=== PATIENT | female | born 1970 | race Hispanic/Latino ===

== ENCOUNTER → 2020-10-06 14:24 | Outpatient (CLI) | payer OTHER, SELFPAY ==
[2020-10-06 13:34] VITALS: BMI 37.0
[2020-10-06 14:27] LABS: Mucous, Urine 0 SEEN /hpf (<or=2+); Red Blood Cells-Urine 0 SEEN /hpf (0-5)
[2020-10-06 15:21] LABS: Absolute Lymphocyte Count 3.07 X10^3/uL (0.83-4.51); Absolute Neutrophil Count 4.2 X10^3/uL (2.0-7.7); Basophil# 0.02 X10^3/uL; Basophil% 0.2 % (0-1); Color, Urine Yellow (Yellow); Eosinophil# 0.13 X10^3/uL; Eosinophils% 1.6 % (0-5); Glucose, Dipstick Normal (Normal); Hematocrit 40.2 % (37-47); Hemoglobin 13.8 g/dL (12.0-15.0); Ketone-Dipstick 50 mg/dl (Negative); Leukocyte Esterase-Dipstick 25 /ul (Negative); Lymphocyte # 3.07 X10^3/ul (4.0); Lymphocyte % 38.1 % (19-41); Mean Corp Hgb Conc 34.3 g/dL (32-36); Mean Corpuscular Hgb 30.4 pg (27.0-32.0); Mean Corpuscular Volume 88.5 fL (81-99); Mean Platelet Vol. 10.4 fl (6.2-12.0); Monocyte# 0.59 X10^3/uL; Monocyte% 7.3 % (0-10); NRBC Flagged by Analyzer 0 % (0-5); Neutrophil # 4.22 X10^3/uL (2.7-7.7); Neutrophil % 52.6 % (47-70); Nitrite-Dipstick Negative (Negative); Occult Blood-Urine 10 /ul (Negative); Platelet Count 245 K/mm3 (150-450); Protein-Dipstick Negative (Negative); RBC Distribution Width CV 12.8 % (11.6-14.6); RBC Distribution Width SD 40.3 fl (35.1-43.9); Red Blood Count 4.54 M/mm3 (4.2-5.4); Urine Bilirubin Dipstick Negative (Negative); Urine Clarity Clear (Clear); Urine Urobilinogen Normal (Normal); White Blood Count 8.1 K/mm3 (4.4-11.0)
[2020-10-06 15:39] LABS: Squamous Epithelial Cells - UA 5-10 SEEN /hpf (5-10)
[2020-10-06 15:40] LABS: Bacteria RARE /hpf (None Seen); White Blood Cells 0-5 SEEN /hpf (0-5)
[2020-10-06 16:03] LABS: ALB/GLOB Ratio 1.1 RATIO (0.9-2.4); AST(SGOT) 20 U/L (15-37); Alanine Aminotransfer ALT/SGPT 42 U/L (13-56); Albumin, Serum 3.9 g/dL (3.2-5.0); Alkaline Phosphatase 95 U/L (45-117); Anion Gap 9 (5-15); BUN 12 mg/dL (7-18); BUN/Creat Ratio 17.1 RATIO (10-20); Calcium,Total 9.3 mg/dL (8.5-10.1); Chloride 105 mmol/L (98-107); EST Glomerular Filtration Rate 93 mL/min (>60); Est Glom Filt Rate - Afr Amer 113 mL/min (>60); Globulin 3.5 g/dL (2.2-4.2); Glucose 126 mg/dL (74-106); Potassium 3.7 mmol/L (3.5-5.1); Protein, Total 7.4 g/dL (6.4-8.2); Sodium Level 141 mmol/L (136-145)
[2020-10-07 19:44] LABS: Hemoglobin A1c 7.1 % (3.8-5.6)
== END ==
PROVIDERS: PCP Internal Medicine; Visit Provider Internal Medicine
DX: R10.9 Unspecified abdominal pain (principal); R73.9 Hyperglycemia, unspecified
CPT/HCPCS: 36415; 80053; 81001; 83036; 85025

== ENCOUNTER → 2020-10-16 07:48 | Outpatient (CLI) | payer OTHER, SELFPAY ==
[2020-10-06 13:34] VITALS: BMI 37.0
--- NOTE | 2020-10-16 07:50 | US_ITS ---
STUDY: ULTRASOUND TRANSVAGINAL CLINICAL: Female, 50 years old. RLQ PAIN TECHNIQUE: Transvaginal COMPARISON: None. FINDINGS: Normal uterine size measuring 7.4 x 5.7 x 3.7 cm in maximal craniocaudal dimension. There are fibroids noted the largest measuring 2.5 x 1.6 x 1.8 cm Normal endometrial thickness measuring 2.4 mm. There are no endometrial masses, and there is no fluid in the endometrial cavity. Tiny nabothian cyst in the lower uterine segment Normal right ovary, measuring 3.3 x 1.8 x 2.3 cm. There is a small cystic structure in the adnexa measuring 1.1 x 1 x 0.7 cm possibly representing a paraovarian cyst Normal left ovary, measuring 1.8 x 1.5 x 1.1 cm. There are multiple follicles without a dominant cyst. There is no free fluid in the pelvis. US/Transvaginal Non- IMPRESSION: Intrauterine fibroids the largest measuring 1.1 x 1 x 0.7 cm Small right adnexal cyst measuring 1.1 x 1 x 0.7 cm possibly paraovarian in etiology. Electronically Signed: Kyler Allen MD at 16:51 EST , Service support ,
== END ==
PROVIDERS: PCP Internal Medicine; Referring Provider Internal Medicine; Visit Provider Internal Medicine
DX: R10.31 Right lower quadrant pain (principal)
CPT/HCPCS: 76830

== ENCOUNTER 2020-12-18 09:32 | Day surgery (SDC) | payer OTHER, BC, SELFPAY ==
[2020-10-06 13:34] VITALS: BMI 37.0
--- NOTE | 2020-12-16 15:57 | EKG12_ITS ---
Test Reason : PRE-OP Blood Pressure : / mmHG Vent. Rate : 093 BPM Atrial Rate : 093 BPM P-R Int : 146 ms QRS Dur : 082 ms QT Int : 362 ms P-R-T Axes : 040 -30 020 degrees QTc Int : 450 ms Normal sinus rhythm Left axis deviation Left ventricular hypertrophy Poor R wave progression Abnormal ECG Confirmed by MARIANN HENNESSY, BEKAH ([id number]), purchase request editor IKE CASTILLO ([id number]) on 12/18/2020 11:12:35 AM Referred By: Naman Kirkland Confirmed By:BEKAH WAITE MD
[2020-12-16 17:07] LABS: Hematocrit 40.5 % (37-47); Hemoglobin 13.5 g/dL (12.0-15.0); Mean Corp Hgb Conc 33.3 g/dL (32-36); Mean Corpuscular Hgb 29.7 pg (27.0-32.0); Mean Platelet Vol. 10.3 fl (6.2-12.0); Platelet Count 249 K/mm3 (150-450); RBC Distribution Width CV 12.6 % (11.6-14.6); RBC Distribution Width SD 41.3 fl (35.1-43.9); Red Blood Count 4.55 M/mm3 (4.2-5.4); White Blood Count 9.7 K/mm3 (4.4-11.0)
[2020-12-18] VITALS (7 sets, daily range): BP systolic 110–148; BP diastolic 60–90; PULSE 72–89; RESP 16–18; TEMP 36–36.6; O2SAT 88–100; BMI 36.3
[2020-12-18] MEDS: Lactated Ringers 1,000 ML 100 ML IV (10:19)
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
--- NOTE | 2020-12-18 11:00 | CYST_PTH ---
PATIENT: SAIMA ESCAMILLA LOC: [facility] U#:[id number] AGE/SX: 50/F ROOM: RE12/18/[address]: Dr. Naman Kirkland MD : 1970 BED: DIS: 12/18/2020 SPEC #: [id number] RECD: 12/18/20 13:25 STATUS: MOHINI REShawn #: [id number] KRUNAL: 12/18/20 11:[address]: Naman Kirkland DEPT: SURGICAL PATHOLOGY RECD BY: Judy Paul ENTERED: 12/19/20 07:10 SP TYPE: Cyst OTHR DR: Dr. Mala Olivares MD Tissues: A - CYST B - CYST Procedures: Surgery Specimen Level III HEADER OPERATION: Diagnostic laparoscopy, ovarian cystectomy, left paratubal cyst PRE-OP DIAGNOSIS: Right lower quadrant pain TISSUE SUBMITTED: A - Right ovarian cyst, B - Left paratubal cyst MICROSCOPIC DIAGNOSIS A. Right ovarian cyst, cystectomy: Consistent with fibroma. B. Left paratubal cyst: Consistent with paratubal cyst. CECIL:paula 12/22/2020 COMMENT Case has been reviewed in consultation with Dr. Cox who concurs with the above diagnosis. IDC:AM MICROSCOPIC DESCRIPTION Slides are reviewed. GROSS DESCRIPTION A - Received in fixative is one container labeled with the patient's name and designated right ovarian cyst. The specimen consists of an indurated fragment of white-sam soft tissue measuring 1 x 0.7 x 0.5 cm. The specimen is sectioned and totally submitted in one cassette. B - Received in fixative is one container labeled with the patient's name and designated left paratubal cyst. The specimen consists of a piece of sam soft tissue measuring 0.5 x 0.5 x 0.2 cm. The specimen is totally submitted in one cassette. / AM:paula 12/19/20 TC:5 CPT: 71349 x2
--- NOTE | 2020-12-18 11:56 | OP.PCM_ITS ---
Report of Operation Date of Procedure: 12/18/20 Pre-Operative Diagnosis: Right lower quadrant pain Post-Operative Diagnosis: Right lower quadrant pain Surgery/Procedure Performed:: Diagnostic laparoscopy, right ovarian cystectomy, left paratubal cystectomy Description of Surgical Findings:: Surgeon: Naman Kirkland MD Anesthesia: General EBL: 5 cc Urine output: 125 cc IV fluids: 1000 cc Complications: None Specimen: Right ovarian cyst, left paratubal cyst Findings: Right ovary with half centimeter solid white ovarian cyst. Left fallopian tube with left paratubal cyst. Otherwise normal uterus, tubes, and ovaries. Appendix visualized no pathology noted Consent: Patient arrived with right lower quadrant pain for 3 years elected for diagnostic laparoscopy right ovarian cystectomy left paratubal cystectomy. Patient understands the risk of the procedure include but are not limited to visceral or vascular injury, prolonged hospitalization, blood loss and need for transfusion, reoperation. Patient said understanding wish to proceed. All questions are answered consent was signed Procedure: Patient for back to the OR where general anesthesia found to be adequate. No antibiotic indicated. A weighted speculum was placed in the posterior aspect of the vagina cervical dilators used to dilate cervix. Your manipulator was placed. Varies needle was inserted at the umbilicus water safety test was passed. Midline supraumbilical 5 mm trocar was inserted. Laparoscope was inserted above findings were noted. Left lower quadrant 5 mm trocar was inserted under direct visualization. Left upper quadrant 5 mm trocar was inserted under direct visualization. Using a atraumatic grasper and spatula Bovie right ovarian cystectomy and left paratubal cystectomy was performed. Good hemostasis noted. Above findings were noted. All counts correct x2. Patient tolerated procedure well and was brought to recovery in a stable condition. chemical preparer: Mima Pope
--- NOTE | 2020-12-18 12:01 | PCM.DC.D&C ---
Discharge Diet: No Restrictions Discharge Activity: Return to Normal Activity, May Drive, May Shower May resume sexual activity in: 4-6 weeks Weight Bearing Status: Weight bearing as tolerated Call your doctor if your incision/area has: Continuous Slow Oozing, Foul Smelling Discharge Call your doctor if you observe: Fever of 101 or Higher, Shortness of breath, Chest pain Allergies/Adverse Reactions: Allergies diphenhydramine [From Benadryl] Allergy (Severe, Verified 12/18/20 09:57) Anaphylaxis meperidine [From Demerol] Allergy (Severe, Verified 12/18/20 09:57) Itching tetracycline Adverse Reaction (Severe, Verified 12/18/20 09:57) UTI Medications to take at Discharge Ibuprofen 800 mg PO TID #30 tablet 12/18/20 The following prescriptions were given: Ibuprofen 800 mg PO TID #30 tablet Transmission Status: Pending to [facility] Primary Care Physician: Mala Olivares MD [Primary Care Provider] - Test Results: Test results from this visit will be discussed in further detail at your follow-up appointment, if applicable. Please Follow Up With: Naman Kirkland MD When: 2 weeks
[2020-12-18] MEDS: Ketorolac 30 MG/ML Syringe IV (12:26)
[2020-12-18] MEDS: Acetaminophen 500 MG Tablet 1000 MG PO (13:47)
== END 2020-12-18 14:49 | disposition home or self-care (01) ==
LOC: SDC 09:32 → AC 09:33
PROVIDERS: PCP Internal Medicine; Referring Provider Obstetrics & Gynecology; Visit Provider Obstetrics & Gynecology
PROC: (CPT 49320; principal; 2020-12-18 10:45)
DX: D25.9 Leiomyoma of uterus, unspecified (principal); N83.8 Other noninflammatory disorders of ovary, fallopian tube and broad ligament; Z20.822 Contact with and (suspected) exposure to COVID-19; Z78.0 Asymptomatic menopausal state; Z87.891 Personal history of nicotine dependence
CPT/HCPCS: 58662; 36415; 85027; 86850; 86900; 86901; 87426; 88304; 93005; C9803; J7120; J2405

== ENCOUNTER 2020-12-30 11:24 | Emergency (ER) | payer OTHER, BC, SELFPAY ==
[2020-12-18 09:59] VITALS: BMI 36.3
[2020-12-30 11:25] VITALS: BP 173/101; PULSE 95; RESP 16; TEMP 36.4; O2SAT 97; BMI 36.1
--- NOTE | 2020-12-30 11:37 | VDLE_ITS ---
Reason For Study: Swelling Procedure LEFT This is a venous duplex using B-mode, color GSV is normal. flow and spectral Doppler. CFV is compressible, spontaneous, phasic, Exam performed in department. competent, and demonstrates normal A preliminary report was called and/or faxed augmentation. to ED. FV is compressible, spontaneous, phasic, competent and demonstrates normal augmentation. POP V is compressible, spontaneous, phasic, competent and demonstrates normal augmentation. T/P Trunk is compressible. PTV is compressible. LT PerV is compressible. VL/Venous Duplex US, Unilateral Interpretation Summary There is no evidence of left lower extremity deep vein thrombosis. Left great s aphenous vein appears patent and compressible segmentally. Ordering Physician: José Luis Fontanez Referring Physician: Mala Olivares Performed By: Brandi Whitten RVT
--- NOTE | 2020-12-30 11:38 | EKG12_ITS ---
Test Reason : BLOOD CLOT Blood Pressure : / mmHG Vent. Rate : 083 BPM Atrial Rate : 083 BPM P-R Int : 144 ms QRS Dur : 086 ms QT Int : 380 ms P-R-T Axes : 049 -32 025 degrees QTc Int : 446 ms Normal sinus rhythm Left axis deviation Left ventricular hypertrophy Abnormal ECG Confirmed by MARIANN HENNESSY, BEKAH ([id number]), editor managing director IKE CASTILLO ([id number]) on 01/01/2021 9:08:47 AM Referred By: MR Confirmed By:BEKAH WAITE MD
--- NOTE | 2020-12-30 11:41 | EX.ED.DYSGE1 ---
HPI History of Present Illness Chief Complaint: Edema Narrative Narrative: Patient presenting for evaluation secondary to leg swelling and shortness of breath. Patient had a history of a laparoscopic ovarian surgery performed last week. Patient states that since then she has been noticing some left leg swelling and pain. Patient states that the pain is mild, worse with palpation and movement. Patient also endorses that in the last couple of days she has been feeling somewhat short winded. She denies any chest pain. Shortness of breath is worse with exertion. No history of DVT or PE in the past. No other infectious signs or symptoms such as fever, but she does endorse a cough. This is nonproductive. Review of systems otherwise negative. [facility] Medical History Giang esophagus Carpal tunnel syndrome Contusion of bone Home Medications ibuprofen 800 mg PO TID #30 tablet 12/18/20 [Rx Last Taken Unknown] Allergy/AdvReac Type Severity Reaction Status Date / Time diphenhydramine Allergy Severe Anaphylaxis Verified 12/30/20 11:27 [From Benadryl] meperidine [From Demerol] Allergy Severe Itching Verified 12/30/20 11:27 tetracycline AdvReac Severe UTI Verified 12/30/20 11:27 Family History Mother Cancer cervical Other Arthritis Asthma Diabetes Heart disease Hypertension Myocardial infarction Surgical History History of cholecystectomy history of HALO Social History Smoking Status: Former smoker quit date: 09/05/03 Tobacco: How many years used: 10 alcohol intake: never substance use type: does not use what type of physical activity do you participate in: aerobics ROS ROS ED Constitutional Constitutional ED: Denies chills or fever(s) Eyes Eyes: Denies change in vision ENT ENT ED: Denies rhinorrhea Cardiovascular Cardiovascular: Denies chest pain or palpitations Respiratory/Chest Respiratory/Chest: Reports dyspnea Gastrointestinal Gastrointestinal: Reports abdominal pain; Denies nausea or vomiting Genitourinary Genitourinary ED: Denies dysuria Musculoskeletal Musculoskeletal: Reports other Details: Edema ; Denies arthralgias or myalgias Integumentary Denies abscess or rash Neurologic Neurologic: Denies headache(s), paresthesias or weakness Psychiatric Psychiatric: Denies depression Endocrine Endocrinology: Denies polyuria EXAM Physical Exam Const Vital Signs: 12/30/20 11:25 12/30/20 11:37 12/30/20 11:44 Temperature 97.5 F L Temperature Source Temporal Pulse Rate 95 Respiratory Rate 16 Respiratory Effort Normal Respiratory Pattern Normal Blood Pressure 173/101 H Blood Pressure Mean 125 Pulse Ox 97 99 Oxygen Delivery Method Room Air Room Air Positive well nourished and well developed General Appearance ED: well developed and NAD HEENT Negative for trauma or tenderness Eyes EOMs intact bilaterally Neck no lymphadenopathy, supple and no JVD Chest Wall palpation of chest normal Resp normal respiratory effort and clear to auscultation bilaterally Cardio regular rhythm and no murmurs Cardio Narrative: Borderline tachycardia Peripheral Pulses: pulses 2+ throughout GI normal to inspection, nondistended, normoactive bowel sounds GI Narrative: TTP LLQ postoperative, no guarding or rebound Palpation: soft Back/Spine no CVA tenderness Extremity normal to inspection Extremity Narrative: Patient complains of edema that is asymmetric but I really do not appreciate that on physical exam. Normal distal sensation and pulses. Neuro oriented x3 Sensorium / Orientation: alert Psych mental status grossly normal Skin no rashes or lesions noted MDM MDM MDM Narrative Medical decision making narrative: Patient presented for evaluation secondary to shortness of breath and leg swelling. Chest x-ray by my personal review as well as radiology is negative. EKG unremarkable. CBC shows no signs of leukocytosis or anemia, chemistry unremarkable with a normal troponin. Duplex ultrasound was performed of the left lower extremity which was read as negative. Patient's peripheral edema really is hardly even perceptible objectively, I do not feel that further work-up is indicated. Patient was recommended elevation and compression. She was given reassurance. Patient was discharged in stable condition. Lab Data Labs: Laboratory Results - last 24 hr 12/30/20 12/30/20 11:55 11:55 WBC 8.0 RBC 4.70 Hgb 13.5 Hct 41.3 MCV 87.9 MCH 28.7 MCHC 32.7 RDW Std Deviation 40.6 RDW Coeff of Gaetano 12.5 Plt Count 259 MPV 9.9 Immature Gran % (Auto) 0.300 Neut % (Auto) 68.0 Lymph % (Auto) 24.9 [place] % (Auto) 5.3 Eos % (Auto) 1.1 Baso % (Auto) 0.4 Absolute Neuts (auto) 5.5 Absolute Lymphs (auto) 1.99 Nucleated RBC % 0 Sodium 140 Potassium 3.6 Chloride 104 Carbon Dioxide 30.0 Anion Gap 6 BUN 10 Creatinine 0.61 Estim Creat Clear Calc 138.28 Est GFR (MDRD) Af Amer 131 Est GFR (MDRD) Non-Af 108 BUN/Creatinine Ratio 16.3 Glucose 154 H Calcium 9.1 Troponin I < 0.015 Radiography Chest X-Ray - ED: 2 View, Read by ED Physician and Normal Diagnostic Testing: Radiology Impression Chest X-Ray 12/30/20 12:05 IMPRESSION: Normal x-ray examination of the chest. Electronically Signed: Diego Busch MD at 12:36 EDT , Service support , EKG Initial EKG: Attestation: I personally reviewed and interpreted this EKG as follows: (Sinus rhythm of [address] segments normal T waves normal CA and QTc intervals no evidence of acute ischemia or arrhythmia.) Discharge Plan Triage Chief Complaint: Edema ED Provider: José Luis Fontanez Dx/Rx/DC Orders Clinical Impression: Edema, peripheral Instructions: ED Peripheral Edema, Unilateral Prescriptions: No Action ibuprofen 800 MG tablet 800 mg PO TID Qty: 30 RF: 1 Primary Care Provider: Mala Olivares Referrals: Mala Olivares MD [Primary Care Provider] - As Needed Disposition Patient Disposition: Home, self care
[2020-12-30 11:44] VITALS: O2SAT 99
[2020-12-30 12:03] LABS: Absolute Lymphocyte Count 1.99 X10^3/uL (0.83-4.51); Absolute Neutrophil Count 5.5 X10^3/uL (2.0-7.7); Basophil# 0.03 X10^3/uL; Basophil% 0.4 % (0-1); Eosinophil# 0.09 X10^3/uL; Eosinophils% 1.1 % (0-5); Hematocrit 41.3 % (37-47); Hemoglobin 13.5 g/dL (12.0-15.0); Lymphocyte # 1.99 X10^3/ul (0.83-4.51); Lymphocyte % 24.9 % (19-41); Mean Corp Hgb Conc 32.7 g/dL (32-36); Mean Corpuscular Hgb 28.7 pg (27.0-32.0); Mean Corpuscular Volume 87.9 fL (81-99); Mean Platelet Vol. 9.9 fl (6.2-12.0); Monocyte# 0.42 X10^3/uL; Monocyte% 5.3 % (0-10); NRBC Flagged by Analyzer 0 % (0-5); Neutrophil # 5.45 X10^3/uL (2.7-7.7); Platelet Count 259 K/mm3 (150-450); RBC Distribution Width CV 12.5 % (11.6-14.6); RBC Distribution Width SD 40.6 fl (35.1-43.9)
--- NOTE | 2020-12-30 12:05 | RAD_ITS ---
STUDY: X-RAY CHEST REASON FOR EXAM: Female, 50 years old. Chest pain TECHNIQUE: PA and lateral views of the chest. COMPARISON: None. FINDINGS: EKG electrodes are seen. The lungs are clear and expanded. There is no demonstrated pleural abnormality. Normal size heart. Normal mediastinum and alessandro. Normal visualized pulmonary arteries. Normal visualized aortic arch and descending thoracic aorta. Normal visualized thoracic spine. Normal visualized ribs, clavicles, and shoulders. Prior cholecystectomy. RAD/Chest PA and Lateral IMPRESSION: Normal x-ray examination of the chest. Electronically Signed: Diego Busch MD at 12:36 EDT , Service support ,
[2020-12-30 12:17] LABS: Anion Gap 6 (5-15); BUN 10 mg/dL (7-18); BUN/Creat Ratio 16.3 RATIO (10-20); Calcium,Total 9.1 mg/dL (8.5-10.1); Chloride 104 mmol/L (98-107); Creatinine, Serum 0.61 mg/dL (0.55-1.02); EST Glomerular Filtration Rate 108 mL/min (>60); Est Glom Filt Rate - Afr Amer 131 mL/min (>60); Estimated Creatinine Clearance 138.28 ml/min; Glucose 154 mg/dL (74-106); Potassium 3.6 mmol/L (3.5-5.1); Sodium Level 140 mmol/L (136-145)
[2020-12-30 13:52] VITALS: BP 146/75; PULSE 87; RESP 16; O2SAT 97
== END 2020-12-30 13:52 | disposition home or self-care (01) ==
PROVIDERS: Emergency Provider Emergency Medicine; PCP Internal Medicine
DX: M79.89 Other specified soft tissue disorders (principal); M79.605 Pain in left leg; R06.02 Shortness of breath; Z79.1 Long term (current) use of non-steroidal anti-inflammatories (NSAID); Z87.891 Personal history of nicotine dependence
CPT/HCPCS: 71046; 80048; 84484; 85025; 93005; 93971; 99284; A4216

== ENCOUNTER 2021-01-13 14:13 | Outpatient (RCR) | payer OTHER, BC, SELFPAY | END 2021-02-17 23:59 | LOC: IMMUN 14:13 | PROVIDERS: PCP Internal Medicine; Visit Provider Family Medicine | DX: Z23 Encounter for immunization (principal) | CPT/HCPCS: 0001A; 0002A; 91300 ==

== ENCOUNTER 2021-02-06 20:25 | Emergency (ER) | payer BC, SELFPAY ==
[2021-02-06 20:26] VITALS: BP 149/79; PULSE 98; RESP 15; TEMP 36.2; O2SAT 99; BMI 36.3
--- NOTE | 2021-02-06 20:37 | CT_ITS ---
INDICATION: Pain EXAMINATION: CT Abdomen And Pelvis W/O Contrast Injection TECHNIQUE: Helically acquired images were obtained of the abdomen and pelvis without the use of IV contrast. A radiation dose optimization technique was used for this scan. Oral contrast: None. COMPARISON: None FINDINGS: Evaluation of the solid organs and vascular structures is limited without intravenous contrast. Visualized lung bases: Unremarkable Liver: Scattered subcentimeter hypodensities are too small to characterize but most likely cysts. Diffusely hypodense. Gallbladder: Cholecystectomy. Spleen: Unremarkable Pancreas: Unremarkable Adrenal Glands: Unremarkable Kidneys: Tiny 1 mm obstructing stone in the left ureterovesical junction with associated minimal left hydroureteronephrosis. Additional punctate nonobstructing 1 mm stone in the left midpole. Vasculature: Mild scattered aortoiliac atherosclerotic calcifications. GI Tract: Scattered diverticula throughout the colon without evidence of inflammation. The appendix is not visualized. Lymphadenopathy: None Peritoneum: No ascites. Bladder: Unremarkable Reproductive organs: Unremarkable Bones/Soft tissues: No suspicious osseous or soft tissue lesions CT/Abdomen/Pelvis without Cont IMPRESSION: Tiny 1 mm obstructing stone in the left ureterovesical junction with associated minimal left hydroureteronephrosis. Fatty liver. Electronically Signed: Kaiser Pfeiffer MD at 21:45 EDT Tel , Service support ,
--- NOTE | 2021-02-06 20:38 | EDS_ITS ---
HPI History of Present Illness Chief Complaint: Flank Pain Detail of Chief Complaint: Patient with left flank pain that started 1 hour ago. Informant: patient Onset/Context/Timing Onset: Today Current Severity: 06/14 Narrative Narrative: Patient presents with left-sided flank pain that started 1 hour ago. Patient states the pain is severe and excruciating. She is not had any nausea or vomiting. She states that 4 days ago she started having some left lower quadrant discomfort and feeling like she could not empty her bladder completely. She denies dysuria. She denies hematuria. No history of kidney stones. Patient states that she has had prior right ovarian cyst resected and left-sided tubal. Prior similar symptoms: No PFSH PFSH Medical History Giang esophagus Carpal tunnel syndrome Contusion of bone Home Medications ibuprofen 800 mg PO TID #30 tablet 12/18/20 [Rx Last Taken Unknown] ondansetron 4 mg PO Q8H PRN PRN #10 tab 02/06/21 [Rx Last Taken Unknown] Allergy/AdvReac Type Severity Reaction Status Date / Time diphenhydramine Allergy Severe Anaphylaxis Verified 02/06/21 20:28 [From Benadryl] meperidine [From Demerol] Allergy Severe Itching Verified 02/06/21 20:28 tetracycline AdvReac Severe UTI Verified 02/06/21 20:28 Family History Mother Cancer cervical Other Arthritis Asthma Diabetes Heart disease Hypertension Myocardial infarction Surgical History History of cholecystectomy history of HALO Social History Smoking Status: Former smoker quit date: 09/05/03 Tobacco: How many years used: 10 alcohol intake: never substance use type: does not use what type of physical activity do you participate in: aerobics ROS ROS ED Constitutional Constitutional ED: Reports systems reviewed and no addt'l complaints, except as documented; Denies body ache(s), change in weight or chills Eyes Eyes: Denies acute decrease in peripheral vision, change in vision, double vision or loss of vision ENT ENT ED: Reports none; Denies ear pain, lip swelling, loss taste/smell, neck pain, otalgia or sore throat Cardiovascular Cardiovascular: Reports none; Denies abdominal pain, chest pain with activity, leg edema, lightheadedness, palpitations, rapid heart rate or syncope Respiratory/Chest Respiratory/Chest: Reports none; Denies change in mental status, dry cough, dyspnea, hemoptysis, shortness of breath at rest or shortness of breath with exertion Gastrointestinal Gastrointestinal: Reports none and abdominal pain; Denies change in stool character, diarrhea, hematemesis, hematochezia, melena, rectal bleeding or vomiting Genitourinary Genitourinary ED: Reports none; Denies abdominal discomfort, anuria, dysuria, genital pain or polyuria Musculoskeletal Musculoskeletal: Reports none and back pain; Denies arthralgias, difficulty walking, extremity pain, muscle weakness or myalgias Integumentary Reports none; Denies abscess or rash Neurologic Neurologic: Reports none; Denies abnormal gait, confusion, focal weakness, frequent falls, headache(s), loss of vision, numbness, paresthesias, radicular pain, vertigo or weakness Psychiatric Psychiatric: Reports systems reviewed and no addt'l complaints, except as documented and none; Denies behavioral changes, confusion, difficulty concentrating, hallucinations, suicidal ideation, tactile hallucinations or visual hallucinations Endocrine Endocrinology: Denies none, cold intolerance, excessive sweating, fatigue or heat intolerance Hematologic/Lymphatic Hematologic/Lymphatic: Reports none; Denies anemia, easy bleeding or easy bruising Allergic/Immunologic Allergic/Immunologic ED: Denies as per HPI, none, lip swelling, mouth swelling, throat swelling, tongue swelling or hives EXAM Physical Exam Const Vital Signs: 02/06/21 20:26 02/06/21 21:20 Temperature 97.2 F L Temperature Source Temporal Pulse Rate 98 Respiratory Rate 15 Respiratory Effort Normal Non-Labored Respiratory Pattern Normal Blood Pressure 149/79 H Blood Pressure Mean 102 Pulse Ox 99 Oxygen Delivery Method Room Air Positive well nourished and well developed General Appearance ED: well developed and NAD HEENT Reports TM's clear and moist mucous membranes normocephalic and atraumatic; Negative for trauma or tenderness Tympanic Membrane ED: Yes TM's clear Eyes PERRL and EOMs intact bilaterally General Eye ED: Negative for pale conjunctiva or scleral icterus Neck no lymphadenopathy, supple and no JVD General: Negative for tenderness Chest Wall inspection of chest normal and palpation of chest normal Chest: Negative for tenderness Resp normal respiratory effort and clear to auscultation bilaterally Effort and Inspection: Negative for respiratory distress or pain with movement Auscultation: Negative for rhonchi, wheezes or diminished lung sounds Cardio regular rate, regular rhythm, S1 normal heart sound, S2 normal heart sound and no murmurs Peripheral Pulses: pulses 2+ throughout GI normal to inspection, nondistended, normoactive bowel sounds, soft to palpation, non-distended and no masses Palpation: soft and tender LLQ Back/Spine no thoracic nor lumbar tenderness General Back: CVA tenderness left Extremity normal to inspection General Extremety ED: Negative for edema General Extremity: Negative for edema Neuro oriented x3, CN's II-XII intact bilaterally, no sensory deficits noted and gait normal Sensorium / Orientation: awake, alert, oriented to person, oriented to place and oriented to time Motor Exam: strength 5/5 throughout and strength abnormal Psych mental status grossly normal Skin no rashes or lesions noted and no wounds MDM MDM MDM Narrative Medical decision making narrative: Patient with 1 mm UVJ stone that is obstructing. She was medicated morphine, Toradol, and Zofran. Her pain resol elis. Patient will be discharged home with urine strainers. She has 800 mg ibuprofen and hydrocodone at home. Patient will be given a prescription for Zofran. Patient will be given referral to urologist for follow-up. I explained that this stone based on it size should pass. She is advised to return if worsening pain, fever, vomiting, or condition should worsen anyway. Lab Data Attestation: I reviewed the patient's lab results. Labs: Laboratory Results - last 24 hr 02/06/21 02/06/21 02/06/21 21:00 21:05 21:05 WBC 8.0 RBC 4.67 Hgb 13.7 Hct 41.3 MCV 88.4 MCH 29.3 MCHC 33.2 RDW Std Deviation 41.2 RDW Coeff of Gaetano 12.7 Plt Count 263 MPV 10.0 Immature Gran % (Auto) 0.300 Neut % (Auto) 61.9 Lymph % (Auto) 30.2 [place] % (Auto) 6.1 Eos % (Auto) 1.1 Baso % (Auto) 0.4 Absolute Neuts (auto) 4.9 Absolute Lymphs (auto) 2.41 Nucleated RBC % 0 Sodium 140 Potassium 3.7 Chloride 104 Carbon Dioxide 28.0 Anion Gap 8 BUN 14 Creatinine 0.85 Estim Creat Clear Calc 99.79 Est GFR (MDRD) Af Amer 90 Est GFR (MDRD) Non-Af 75 BUN/Creatinine Ratio 16.5 Glucose 140 H Calcium 9.4 Serum , Qual Urine Color Yellow Urine Clarity Sl. Cloudy Urine pH 5.0 Ur Specific Jordan 1.030 Urine Protein 30 H Urine Glucose (UA) Normal Urine Ketones 15 H Urine Occult Blood 150 H Urine Nitrite Negative Urine Bilirubin Negative Urine Urobilinogen Normal Ur Leukocyte Esterase 25 H Urine RBC 10-25 SEEN Urine WBC 0-5 SEEN Ur Squamous Epith Cells 10-25 SEEN Urine Bacteria 0 SEEN Hyaline Casts 0-5 SEEN Urine Mucus 1+ 02/06/21 21:05 WBC RBC Hgb Hct MCV MCH MCHC RDW Std Deviation RDW Coeff of Gaetano Plt Count MPV Immature Gran % (Auto) Neut % (Auto) Lymph % (Auto) [place] % (Auto) Eos % (Auto) Baso % (Auto) Absolute Neuts (auto) Absolute Lymphs (auto) Nucleated RBC % Sodium Potassium Chloride Carbon Dioxide Anion Gap BUN Creatinine Estim Creat Clear Calc Est GFR (MDRD) Af Amer Est GFR (MDRD) Non-Af BUN/Creatinine Ratio Glucose Calcium Serum , Qual NEGATIVE Urine Color Urine Clarity Urine pH Ur Specific Jordan Urine Protein Urine Glucose (UA) Urine Ketones Urine Occult Blood Urine Nitrite Urine Bilirubin Urine Urobilinogen Ur Leukocyte Esterase Urine RBC Urine WBC Ur Squamous Epith Cells Urine Bacteria Hyaline Casts Urine Mucus Radiography Diagnostic Testing: Radiology Impression Abdomen/Pelvis CT 02/06/21 20:37 IMPRESSION: Tiny 1 mm obstructing stone in the left ureterovesical junction with associated minimal left hydroureteronephrosis. Fatty liver. Electronically Signed: Kaiser Pfeiffer MD at 21:45 EDT Tel , Service support , Discharge Plan Triage Chief Complaint: Flank Pain ED Provider: Iyla Pham Dx/Rx/DC Orders Clinical Impression: Kidney stone Instructions: ED Kidney Stone w/ Colic Prescriptions: New ondansetron [ondansetron] 4 MG tablet 4 mg PO Q8H PRN PRN (Reason: Nausea) Qty: 10 RF: 0 No Action ibuprofen 800 MG tablet 800 mg PO TID Qty: 30 RF: 1 Primary Care Provider: Mala Olivares Referrals: Mala Olivares MD [Primary Care Provider] - Wily Lopez MD [STAFF PHYSICIAN] - 3-5 Days Disposition Disposition: Home, self care
[2021-02-06] MEDS: Ondansetron 4 MG/2 ML Vial IV ×2 (21:03→21:50)
[2021-02-06] MEDS: Ketorolac 30 MG/ML Syringe IV (21:03)
[2021-02-06] MEDS: 0.9% Normal Saline 1,000 ML 125 ML IV (21:03)
[2021-02-06] MEDS: HYDROmorphone 1 MG/ML Syringe IV (21:03)
[2021-02-06 21:16] LABS: Absolute Lymphocyte Count 2.41 X10^3/uL (0.83-4.51); Absolute Neutrophil Count 4.9 X10^3/uL (2.0-7.7); Basophil# 0.03 X10^3/uL; Basophil% 0.4 % (0-1); Eosinophil# 0.09 X10^3/uL; Eosinophils% 1.1 % (0-5); Hematocrit 41.3 % (37-47); Hemoglobin 13.7 g/dL (12.0-15.0); Lymphocyte # 2.41 X10^3/ul (0.83-4.51); Lymphocyte % 30.2 % (19-41); Mean Corp Hgb Conc 33.2 g/dL (32-36); Mean Corpuscular Hgb 29.3 pg (27.0-32.0); Mean Corpuscular Volume 88.4 fL (81-99); Monocyte# 0.49 X10^3/uL; Monocyte% 6.1 % (0-10); NRBC Flagged by Analyzer 0 % (0-5); Neutrophil # 4.94 X10^3/uL (2.7-7.7); Neutrophil % 61.9 % (47-70); Platelet Count 263 K/mm3 (150-450); RBC Distribution Width CV 12.7 % (11.6-14.6); RBC Distribution Width SD 41.2 fl (35.1-43.9); Red Blood Count 4.67 M/mm3 (4.2-5.4)
[2021-02-06 21:19] LABS: Bacteria 0 SEEN /hpf (None Seen)
[2021-02-06 21:24] LABS: Color, Urine Yellow (Yellow); Glucose, Dipstick Normal (Normal); Ketone-Dipstick 15 mg/dl (Negative); Leukocyte Esterase-Dipstick 25 /ul (Negative); Nitrite-Dipstick Negative (Negative); Occult Blood-Urine 150 /ul (Negative); Protein-Dipstick 30 mg/dl (Negative); Urine Bilirubin Dipstick Negative (Negative); Urine Clarity Sl. Cloudy (Clear); Urine Urobilinogen Normal (Normal)
[2021-02-06 21:29] LABS: Internal QC Validated? YES +Cl - CLEAR BKGD; Pregnancy, Serum, hCG Quali. NEGATIVE Negative
[2021-02-06 21:30] LABS: Anion Gap 8 (5-15); BUN 14 mg/dL (7-18); BUN/Creat Ratio 16.5 RATIO (10-20); Calcium,Total 9.4 mg/dL (8.5-10.1); Chloride 104 mmol/L (98-107); Creatinine, Serum 0.85 mg/dL (0.55-1.02); EST Glomerular Filtration Rate 75 mL/min (>60); Est Glom Filt Rate - Afr Amer 90 mL/min (>60); Estimated Creatinine Clearance 99.79 ml/min; Glucose 140 mg/dL (74-106); Potassium 3.7 mmol/L (3.5-5.1); Sodium Level 140 mmol/L (136-145)
[2021-02-06 21:31] LABS: Mucous, Urine 1+ /hpf (<or=2+); Red Blood Cells-Urine 10-25 SEEN /hpf (0-5); Squamous Epithelial Cells - UA 10-25 SEEN /hpf (5-10); White Blood Cells 0-5 SEEN /hpf (0-5)
[2021-02-06 21:32] LABS: Hyaline Cast 0-5 SEEN /lpf (0-5)
[2021-02-06 22:46] VITALS: BP 158/72
== END 2021-02-06 22:48 | disposition home or self-care (01) ==
PROVIDERS: Emergency Provider Emergency Medicine; PCP Internal Medicine
DX: N13.2 Hydronephrosis with renal and ureteral calculous obstruction (principal); Z79.1 Long term (current) use of non-steroidal anti-inflammatories (NSAID); Z87.891 Personal history of nicotine dependence; Z90.49 Acquired absence of other specified parts of digestive tract
CPT/HCPCS: 74176; 80048; 81001; 84703; 85025; 96361; 96374; 96375; 96376; 99283; J7030; A4216; J2405

== ENCOUNTER 2022-02-24 12:44 | Emergency (ER) | payer BC, SELFPAY ==
[2022-02-24 12:45] VITALS: BP 143/79; PULSE 95; RESP 14; TEMP 36.2; O2SAT 100; BMI 36.3
--- NOTE | 2022-02-24 13:55 | RAD_ITS ---
STUDY: X-RAY CHEST REASON FOR EXAM: Female, 51 years old. SOB,COVID TECHNIQUE: XR Chest 1 View COMPARISON: Dec 30 2020 12:07pm FINDINGS: There is no demonstrated pleural abnormality. Normal size heart. Normal mediastinum and alessandro. Normal visualized pulmonary arteries. Normal visualized aortic arch and descending thoracic aorta. There are diffuse degenerative changes of the visualized thoracic spine. Normal visualized ribs, clavicles, and shoulders. There is no demonstrated abnormality of the visualized soft tissue structures of the upper abdomen. RAD/Chest 1 View (Portable) IMPRESSION: There are no acute findings. Electronically Signed: Ivan Nails MD at 14:06 EDT ,
--- NOTE | 2022-02-24 14:22 | EKG12_ITS ---
Test Reason : SOB Blood Pressure : / mmHG Vent. Rate : 073 BPM Atrial Rate : 073 BPM P-R Int : 142 ms QRS Dur : 080 ms QT Int : 418 ms P-R-T Axes : 026 -29 005 degrees QTc Int : 460 ms Normal sinus rhythm Leftward axis Poor R wave progression Confirmed by MARIANN HENNESSY, BEKAH ([id number]), editorial manager IKE CASTILLO ([id number]) on 02/26/2022 11:37:13 AM Referred By: VALERI Confirmed By:BEKAH WAITE MD
--- NOTE | 2022-02-24 14:23 | EX.ED.DYSGE1 ---
HPI History of Present Illness Chief Complaint: General Illness Detail of Chief Complaint: Short of breath, near syncope, COVID-positive Informant: patient Onset/Context/Timing Onset: Today Current Severity: Gone Maximum Severity: Moderate Narrative Narrative: Patient presents after having a significant episode of shortness of breath at home. She developed URI symptoms approximately 5 days ago. 2 days ago she was tested for COVID and found to be positive. She states she does feel that she is improving and is using Tessalon Perles to help control cough. She states she was sitting at rest today when she got sudden blanket sensation of lightheadedness and shortness of breath. She is not sure if her anxiety made this worse. At the time of my evaluation she reports her symptoms are resolved and back to baseline. PFSH PFS Medical History Giang esophagus Carpal tunnel syndrome Contusion of bone Home Medications ibuprofen 800 mg tablet 800 mg PO TID #30 tabs 12/18/20 [Rx Last Taken Unknown] ondansetron 4 mg disintegrating tablet 4 mg PO Q8H PRN PRN Nausea #10 tabs 02/06/21 [Rx Last Taken Unknown] Allergy/AdvReac Type Severity Reaction Status Date / Time diphenhydramine Allergy Severe Anaphylaxis Verified 02/24/22 12:47 [From Benadryl] meperidine [From Demerol] Allergy Severe Itching Verified 02/24/22 12:47 tetracycline AdvReac Severe UTI Verified 02/24/22 12:47 Family History Mother Cancer cervical Other Arthritis Asthma Diabetes Heart disease Hypertension Myocardial infarction Surgical History History of cholecystectomy history of HALO Social History Smoking Status: Former smoker quit date: 09/05/03 Tobacco: How many years used: 10 alcohol intake: never substance use type: does not use what type of physical activity do you participate in: aerobics ROS ROS ED Constitutional Constitutional ED: Denies chills or fever(s) Eyes Eyes: Denies change in vision or discharge from eye(s) ENT ENT ED: Denies discharge from eye(s), rhinorrhea or sore throat Cardiovascular Cardiovascular: Reports chest pain; Denies palpitations Respiratory/Chest Respiratory/Chest: Reports cough and dyspnea Gastrointestinal Gastrointestinal: Denies abdominal pain, diarrhea, nausea or vomiting Genitourinary Genitourinary ED: Denies difficulty urinating or dysuria Musculoskeletal Musculoskeletal: Denies back pain or extremity pain Integumentary Denies Abrasions or rash Neurologic Neurologic: Denies headache(s) or weakness Allergic/Immunologic Allergic/Immunologic ED: Denies lip swelling or urticaria EXAM Physical Exam Const Vital Signs: 02/24/22 12:45 02/24/22 13:06 02/24/22 15:00 Temperature 97.2 F L Temperature Source Temporal Pulse Rate 95 70 Respiratory Rate 14 16 Respiratory Effort Normal Non-Labored Respiratory Pattern Normal Blood Pressure 143/79 H Blood Pressure Mean 100 Pulse Ox 100 99 Oxygen Delivery Method Room Air Room Air Positive well nourished and well developed General Appearance ED: well developed HEENT Reports normocephalic and head/scalp atraumatic Eyes PERRL and EOMs intact bilaterally Neck supple Chest Wall inspection of chest normal and palpation of chest normal Resp normal respiratory effort and clear to auscultation bilaterally Cardio regular rate and regular rhythm GI normal to inspection, nondistended, normoactive bowel sounds Palpation: soft Back/Spine no CVA tenderness Extremity normal to inspection Neuro oriented x3 and no sensory deficits noted Sensorium / Orientation: alert Motor Exam: strength 5/5 throughout Psych mental status grossly normal Skin no rashes or lesions noted MDM MDM MDM Narrative Medical decision making narrative: EKG, chest x-ray, lab work obtained. Lab Data Attestation: I reviewed the patient's lab results. Labs: Laboratory Results - last 24 hr 02/24/22 02/24/22 02/24/22 14:39 14:39 14:39 WBC 3.8 L RBC 4.83 Hgb 14.2 Hct 41.7 MCV 86.3 MCH 29.4 MCHC 34.1 RDW Std Deviation 39.5 RDW Coeff of Gaetano 12.3 Plt Count 206 MPV 10.0 Immature Gran % (Auto) 0.300 Neut % (Auto) 39.9 L Lymph % (Auto) 48.3 H [place]cl[place] % (Auto) 9.9 Eos % (Auto) 1.3 Baso % (Auto) 0.3 Absolute Neuts (auto) 1.5 L Absolute Lymphs (auto) 1.81 Nucleated RBC % 0 D-Dimer Quant (PE/DVT) 0.27 Sodium 140 Potassium 3.8 Chloride 106 Carbon Dioxide 29.0 Anion Gap 5 BUN 7 Creatinine 0.56 Estim Creat Clear Calc 149.75 Est GFR (MDRD) Af Amer 144 Est GFR (MDRD) Non-Af 119 BUN/Creatinine Ratio 12.4 Glucose 112 H Calcium 8.6 Radiography Chest X-Ray - ED: 1 View, Read by ED Physician, Normal, Heart, Lungs and Mediastinum Diagnostic Testing: Clinical Impression(s) from Imaging Studies Chest X-Ray 02/24/22 13:55 IMPRESSION: There are no acute findings. Electronically Signed: Ivan Nails MD at 14:06 EDT Reading Location ID and State: [facility] / [place] , Service support , EKG Initial EKG: Attestation: I personally reviewed and interpreted this EKG as follows: Interpretation: Sinus Rhythm (Sinus at 73 with nonspecific T wave flattening. No ST change.) Treatment and Re-Evaluation Narrative: EKG is unremarkable. Chest x-ray reveals no infiltrate. Lab work including D-dimer are unremarkable. Patient is reassured with these findings will continue supportive care for her COVID. Return instructions are provided. Discharge Plan Triage Chief Complaint: General Illness ED Provider: Makayla Bradley Dx/Rx/DC Orders Clinical Impression: COVID-19 Instructions: Coronavirus Disease 2019 (COVID-19): Overview, Coronavirus Disease 2019 (COVID-19): Caring for Yourself or Others Prescriptions: No Action ibuprofen 800 MG tablet 800 mg PO TID Qty: 30 1RF ondansetron [ondansetron] 4 MG tablet 4 mg PO Q8H PRN PRN (Reason: Nausea) Qty: 10 0RF Primary Care Provider: Mala Olivares Referrals: Mala Olivares MD [Primary Care Provider] - 1-2 Weeks Disposition Disposition: Home, Self Care
[2022-02-24 14:55] LABS: Absolute Lymphocyte Count 1.81 X10^3/uL (0.83-4.51); Absolute Neutrophil Count 1.5 X10^3/uL (2.0-7.7); Basophil# 0.01 X10^3/uL; Basophil% 0.3 % (0-1); Eosinophil# 0.05 X10^3/uL; Eosinophils% 1.3 % (0-5); Hematocrit 41.7 % (37-47); Hemoglobin 14.2 g/dL (12.0-15.0); Lymphocyte # 1.81 X10^3/ul (0.83-4.51); Lymphocyte % 48.3 % (19-41); Mean Corp Hgb Conc 34.1 g/dL (32-36); Mean Corpuscular Hgb 29.4 pg (27.0-32.0); Mean Corpuscular Volume 86.3 fL (81-99); Monocyte# 0.37 X10^3/uL; Monocyte% 9.9 % (0-10); NRBC Flagged by Analyzer 0 % (0-5); Neutrophil % 39.9 % (47-70); Platelet Count 206 K/mm3 (150-450); RBC Distribution Width CV 12.3 % (11.6-14.6); RBC Distribution Width SD 39.5 fl (35.1-43.9); Red Blood Count 4.83 M/mm3 (4.2-5.4); White Blood Count 3.8 K/mm3 (4.4-11.0)
[2022-02-24 15:00] VITALS: PULSE 70; RESP 16; O2SAT 99
[2022-02-24 15:05] LABS: D-Dimer Quantitative (DVT/PE) 0.27 FEU/ug/m (0.27-0.49)
[2022-02-24 15:07] LABS: Anion Gap 5 (5-15); BUN 7 mg/dL (7-18); BUN/Creat Ratio 12.4 RATIO (10-20); Calcium,Total 8.6 mg/dL (8.5-10.1); Chloride 106 mmol/L (98-107); Creatinine, Serum 0.56 mg/dL (0.55-1.02); EST Glomerular Filtration Rate 119 mL/min (>60); Est Glom Filt Rate - Afr Amer 144 mL/min (>60); Estimated Creatinine Clearance 149.75 ml/min; Glucose 112 mg/dL (74-106); Potassium 3.8 mmol/L (3.5-5.1); Sodium Level 140 mmol/L (136-145)
== END 2022-02-24 15:16 | disposition home or self-care (01) ==
PROVIDERS: Emergency Provider Emergency Medicine; PCP Internal Medicine; Visit Provider Emergency Medicine
DX: U07.1 COVID-19 (principal); R55 Syncope and collapse; Z87.891 Personal history of nicotine dependence
CPT/HCPCS: 71045; 80048; 85025; 85379; 93005; 99284; A4216

== ENCOUNTER → 2022-08-17 | Outpatient (CLI) | payer BC, SELFPAY ==
[2022-08-17 15:48] LABS: Hematocrit 40.6 % (37-47); Hemoglobin 13.4 g/dL (12.0-15.0); Mean Corpuscular Hgb 29.3 pg (27.0-32.0); Mean Corpuscular Volume 88.8 fL (81-99); Mean Platelet Vol. 10.2 fl (6.2-12.0); Platelet Count 251 K/mm3 (150-450); RBC Distribution Width CV 12.9 % (11.6-14.6); Red Blood Count 4.57 M/mm3 (4.2-5.4); White Blood Count 7.6 K/mm3 (4.4-11.0)
[2022-08-17 16:35] LABS: Anion Gap 1 (5-15); BUN 15 mg/dL (7-18); BUN/Creat Ratio 18.6 RATIO (10-20); Calcium,Total 8.7 mg/dL (8.5-10.1); Chloride 108 mmol/L (98-107); Creatinine, Serum 0.81 mg/dL (0.55-1.02); EST Glomerular Filtration Rate 79 mL/min (>60); Est Glom Filt Rate - Afr Amer 95 mL/min (>60); Glucose 163 mg/dL (74-106); Sodium Level 140 mmol/L (136-145)
== END | disposition home or self-care (01) ==
LOC: LAB 15:31
PROVIDERS: PCP Internal Medicine; Visit Provider Specialist
DX: Z01.818 Encounter for other preprocedural examination (principal)
CPT/HCPCS: 36415; 80048; 85027

== ENCOUNTER → 2022-09-03 | Outpatient (CLI) | payer BC, SELFPAY ==
[2022-09-12 12:26] LABS: HPV APTIMA, High Risk Negative (Negative)
== END | disposition home or self-care (01) ==
LOC: LABSPEC 13:28
PROVIDERS: Visit Provider Obstetrics & Gynecology
DX: Z01.419 Encounter for gynecological examination (general) (routine) without abnormal findings (principal)
CPT/HCPCS: 87624; 88175; G0145

== ENCOUNTER 2022-11-16 11:00 | Outpatient (RCR) | payer BC, SELFPAY ==
--- NOTE | 2022-09-09 12:44 | HP.OTEVAL ---
Patient's Visit Information SAIMA ESCAMILLA is a 52 year old F, referred to Occupational Therapy by Everardo Muir PA-C, with a diagnosis of right CTR, right TF release of D1,D3,D4. Date of Evaluation: 09/09/22 Occupational Therapist: Yumiko Martinez, CHRIS/José, CHT - Subjective This 52 year old female was seen for OT eval with dx of CTS, and multiple trigger fingers. Pt states she has had CTS for years but trigger fingers initiated this past year. pt states tingling and limited ROM and her IND with ADLs and IADLS. pt would like to return to a PLOF. pt states she has worked for [employer] for 2 years. 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 Pt opted to have sx to have trigger fingers released of right Thumb, and MF and RF along with her CTR on . pt states her tingling has gone away. pt is right handed. pt would like to return to using her left hand with ADLs and IADLs - Pain right hand 2 Pain Intensity Range: 6, 7 - ROM Wrist: right 40/30 left 65/65 Opposition: Kapandji opposition Scale right 3 left 10 ROM Comments: pt demo limited composite fist 1.5 away - Strength Manager Of Financial: right unable left 45# Lateral Pinch: right unable left 10# Tripod Pinch: right unable left 6# - Edema PIP: right MF 7 left 6 - Quick DASH-Disab of Arm,Shoulder& Hand Quick DASH Score: 76.6650 - Goals Goal:Daily scar massage when approriate: Yes Goal:ROM equal to unaffected hand: Yes Goal:Manager Of Financial/Pinch strength at least 75% of unaffected hand: Yes Goal:No pain with affected hand use: Yes Goal:PIP Circumferences equal to unaffected hand: Yes Goal:Full use of affected hand in daily activities including: Yes Goal:Decrease scar hypersensitivity: Yes - Rehabilitation General Assessment: pt demo with limited ROM of right wrist/ and digits, edema and inability to use hand actively with ADLs and IADLs. pt would benefit from skilled OT services 2x week for 8 weeks to return pt to her PLOF. Today therapist ed. pt on scar mtg, edema and AROM/PROM ex along with tendon glides- pt demo understanding and agree to POC, Rehabilitation Potential: Good - Anticipated Interventions A/AAROM/PROM, Strengthening, Edema Control, Scar Care, Triggerpoint Release, Sensory Retraining, Modalities, Joint Protection/Energy Conservation, Ergonomic Education, Fine Motor Coord/Raphael, Education re Diagnosis, Home Program - Visit Plan Frequency: 2-3x /Week Duration: 2 Months General Plan: initiate therapy to decrease edema- improve functional ROM and transition to strengthening as tolerated TEXT: Thank you for the opportunity to evaluate your patient. For Medicare and Medicare HMO plans, please review the plan of care and approve it. It will need to be FAXED BACK to us at [phone] for Medicare purposes. Please let me know if there are questions or concerns regarding this plan of care. Physician Signature: Date:
--- NOTE | 2022-10-06 11:43 | OTREVAL_ITS ---
Everardo Muir PA-C, It has been my pleasure to treat SAIMA ESCAMILLA over the last 8 visits for right CTR, right TF release of D1,D3,D4. Please see the progress note below for an update on the occupational therapy plan of care! Subjective: pt arrives after seeing on Tuesday. pt states he would like her to cont. with therapy and will see her in 6 weeks. Objective/Function: therapy is using out BTE to work director child abuse therapy, pinch resistance, twisting of knobs and forearm supination/pronation to increase director child abuse therapy and pinch strength-. pt is using golf ball to massage scar at home 4x a day. and elastomer at night-. therapy is using Ultra sound and paraffin to soften scar tissue followed with manual scar release michael. pt demo with a right director child abuse therapy strength of 20# left 40#. right lateral pinch 8#. right tripod pinch 4#. right MF PIP -25/100 improved from -45/65. 1 cm from composite fist. pt continues to struggle with scar adhesions and swelling. right MF circ. 6.5 a decrease from 7.0. pt has made gains but continues to struggle with tight composite fist and MF PIP ex. along with weakness and scar adhesions. pt would benefit from cont. services to simulate work tasks, mtg. scar tissue and gain ROM and strength Plan Frequency: 2-3x /Week Duration: 2 Months Plan: BTE. simulated work tasks Goals - Goals Patient Goals: Regain Mobility, Regain Strength, Decrease Pain, Improve Fine Motor Skills, Be More Independent in ADLS Goal:Daily scar massage when approriate: Yes Goal:ROM equal to unaffected hand: Yes Goal:Room Cleaner/Pinch strength at least 75% of unaffected hand: Yes Goal:No pain with affected hand use: Yes Goal:PIP Circumferences equal to unaffected hand: Yes Goal:Full use of affected hand in daily activities including: Yes Goal:Decrease scar hypersensitivity: Yes Anticipated Interventions Anticipated Interventions: A/AAROM/PROM, Strengthening, Edema Control, Scar Care, Triggerpoint Release, Sensory Retraining, Modalities, Joint Protection/ Energy Conservation, Ergonomic Education, Fine Motor Coord/Raphael, Education re Diagnosis, Home Program Please do not hesitate to contact me at [phone] by phone or if you have questions or concerns regarding this new plan of care! Sincerely, Yumiko Martinez, OTR/L, CHT
--- NOTE | 2022-11-12 11:46 | OTREVAL_ITS ---
Everardo Muir PA-C, It has been my pleasure to treat SAIMA ESCAMILLA over the last 23 visits for right CTR, right TF release of D1,D3,D4. Please see the progress note below for an update on the occupational therapy plan of care! Subjective: Pt arrived 5 minutes late- stated that she almost did not come today because of stuff going on- but wanted measurements. pt consistent in attending all her therapy sessions and performing her HEP. Pt is IND with Bathing and dressing and has returned to cooking and cleaning at some modification. Objective/Function: right chief information security officer strength 40# a increase from 20#. right Tripod pinch 8# increase from 6#. right Lateral Pinch 12# increase from 8#. Wrist- 70/60. right MF -10/ 100. pt demo the ability to form tight composite fist. pt continues to struggle with MF extensor lag but with splint and stretching and reverse blocking exercise it does return to WNL of ext. at -5*. pt continue to work with scar using massage/vibration and elsatomer at night. pt strength continues improve. pt is advised to continue to work on scar mt. and desensitization for three more months with her HEP. Cont to strengthen as tolerated. Plan Plan: pt to return to for possible return to work. Goals - Goals Patient Goals: Regain Mobility, Regain Strength, Decrease Pain, Improve Fine Motor Skills, Be More Independent in ADLS Goal:Daily scar massage when approriate: Yes Goal:ROM equal to unaffected hand: Yes Goal:Baby Attendant/Pinch strength at least 75% of unaffected hand: Yes Goal:No pain with affected hand use: Yes Goal:PIP Circumferences equal to unaffected hand: Yes Goal:Full use of affected hand in daily activities including: Yes Goal:Decrease scar hypersensitivity: Yes Anticipated Interventions Anticipated Interventions: A/AAROM/PROM, Strengthening, Edema Control, Scar Care, Triggerpoint Release, Sensory Retraining, Modalities, Joint Protection/Energy Conservation, Ergonomic Education, Fine Motor Coord/Raphael, Education re Diagnosis, Home Program Please do not hesitate to contact me at [phone] by phone or if you have questions or concerns regarding this new plan of care! Sincerely, Yumiko Martinez, OTR/L, CHT
--- NOTE | 2023-03-22 08:13 | HP.OTDCNRP_ITS ---
Patient Information Patient Information: SAIMA ESCAMILLA was seen in my office for initial evaluation on 09/09/22. The following Plan of Care was established for this patient: POC Established Initial Frequency: 2-3x /Week Initial Duration: 2 Months Plan: pt to return to [facility] for possible return to work. Anticipated Interventions Anticipated Interventions: A/AAROM/PROM, Strengthening, Edema Control, Scar Care, Triggerpoint Release, Sensory Retraining, Modalities, Joint Protection/Energy Conservation, Ergonomic Education, Fine Motor Coord/Raphael, Education re Diagnosis and Home Program Last Seen Last Seen: This patient was last seen in our office 11/16/22. Pertinent comments regarding their Occupational therapy will appear below: pt was seen following right multi finger trigger finger release. right computer field technician strength 40# a increase from 20# right Tripod pinch 8# increase from 6# right Lateral Pinch 12# increase from 8# Wrist- 70/60 right MF -10/ 100 pt demo the ability to form tight composite fist. pt continues to struggle with MF extensor lag but with splint and stretching and reverse blocking exercise it does return to WNL of ext. at -5*. pt continue to work with scar using massage/vibration and elsatomer at night. pt strength continues improve. pt is advised to continue to work on scar mt. and desensitization for three more months with her HEP. Cont to strengthen as tolerated. pt has not returned for further tx and returned to work. Pt d/c at this time. At this point I will be discontinuing this patient from occupational therapy. I would be happy to see this patient again in the future if found appropriate by the physician. Thank you! Yumiko Martinez, OTR/L, CHT
== END 2022-11-16 19:00 | disposition home or self-care (01) ==
LOC: OT 11:00
PROVIDERS: Referring Provider Physician Assistant Surgical; Visit Provider Physician Assistant Surgical
DX: M65.311 Trigger thumb, right thumb (principal); M65.331 Trigger finger, right middle finger; G56.01 Carpal tunnel syndrome, right upper limb
CPT/HCPCS: 97035; 97110; 97140; 97166; 97530

== ENCOUNTER 2023-12-12 11:28 | Emergency (ER) | payer BC, SELFPAY ==
[2023-12-12 11:29] VITALS: BP 158/89; PULSE 97; RESP 16; TEMP 36; O2SAT 98; BMI 38.5
--- NOTE | 2023-12-12 11:55 | EKG12_ITS ---
Test Reason : LEFT ARM PAIN Blood Pressure : / mmHG Vent. Rate : 093 BPM Atrial Rate : 093 BPM P-R Int : 138 ms QRS Dur : 082 ms QT Int : 362 ms P-R-T Axes : 046 -34 027 degrees QTc Int : 450 ms Normal sinus rhythm Possible Left atrial enlargement Left axis deviation Minimal voltage criteria for LVH, may be normal variant ( R in aVL ) Abnormal ECG Confirmed by José Luis Askew ([id number]), business editor IKE CASTILLO ([id number]) on 12/14/2023 5:42:14 AM Referred By: HARI/DAILY Confirmed By:José Luis Askew
--- NOTE | 2023-12-12 12:00 | EX.ED.DYSGE1 ---
HPI History of Present Illness Chief Complaint: Other, Pain/Inj Informant: patient Narrative Narrative: Patient is a 53-year-old female with history of left carpal tunnel/trigger finger surgery (currently going to physical therapy for this) presenting with 1 day of left arm pain. She notes some left arm pain yesterday going from her shoulder down to her forearm. She has tried massage and out states it feels like there is a burning sensation in her shoulder and a tightness in her forearm (points to her proximal forearm). She states she had when she went to bed last night and woke up with that still. States otherwise she slept fine. She did not take anything for the pain prior to arrival. She went to physical therapy this morning (is doing weight training as part of her physical therapy) and the therapist recommended she come to the ER to be evaluated further. Patient denies any associated shortness of breath. She had some very mild shortness of breath. Did have a transient episode of lightheadedness and nausea that resolved earlier today. Did have a normal bowel movement and then 2 episodes of diarrhea today. She not sure if this is related to her symptoms. Denies any swelling of her legs. 2 of her older brothers did have heart attacks however her parents did not. Patient denies any history of high blood pressure, high cholesterol or diabetes. She denies any known heart issues. No other complaints or concerns verbalized at this time. 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 Home Medications ibuprofen 800 mg tablet 800 mg PO TID #30 tabs 12/18/20 [Rx Last Taken Unknown] ondansetron 4 mg disintegrating tablet 4 mg PO Q8H PRN PRN Nausea #10 tabs 02/06/21 [Rx Last Taken Unknown] Allergy/AdvReac Type Severity Reaction Status Date / Time diphenhydramine Allergy Severe Anaphylaxis Verified 12/12/23 11:29 [From Benadryl] meperidine [From Demerol] Allergy Severe Itching Verified 12/12/23 11:29 tetracycline AdvReac Severe UTI Verified 12/12/23 11:29 Family History Mother Cancer cervical Other Arthritis Asthma Diabetes Heart disease Hypertension Myocardial infarction Surgical History History of cholecystectomy history of HALO Social History Smoking Status: Former smoker quit date: 09/05/03 Tobacco: How many years used: 10 alcohol intake: never substance use type: does not use what type of physical activity do you participate in: aerobics ROS ROS ED Constitutional Constitutional ED: Denies chills or fever(s) Cardiovascular Cardiovascular: Denies chest pain Respiratory/Chest Respiratory/Chest: Reports dyspnea; Denies cough Gastrointestinal Gastrointestinal: Reports diarrhea and nausea; Denies abdominal pain or vomiting Musculoskeletal Musculoskeletal: Reports other Details: Left arm discomfort ; Denies arthralgias, back pain or neck pain Integumentary Denies rash Neurologic Neurologic: Denies paresthesias or weakness Psychiatric Psychiatric: Denies anxiety Hematologic/Lymphatic Hematologic/Lymphatic: Denies easy bleeding or easy bruising EXAM Physical Exam Const Vital Signs: 12/12/23 11:29 12/12/23 11:35 12/12/23 12:22 Temperature 96.8 F L Temperature Source Temporal Pulse Rate 97 Respiratory Rate 16 Respiratory Effort Normal Non-Labored Respiratory Pattern Normal Blood Pressure 158/89 H Blood Pressure Mean 112 Pulse Ox 98 Oxygen Delivery Method Room Air Room Air Positive well nourished and well developed General Appearance ED: well developed and NAD HEENT Reports moist mucous membranes Eyes PERRL Neck supple and no JVD Chest Wall inspection of chest normal and palpation of chest normal Resp normal respiratory effort and clear to auscultation bilaterally Cardio regular rate and regular rhythm GI normal to inspection, nondistended, normoactive bowel sounds and non-tender Extremity normal to inspection Extremity Narrative: Very mild improvement of pain with palpation over the dorsal proximal radius on the left. Normal range of motion of the shoulder. Normal movements of the hand. No specific reproducibility of her discomfort. General Extremety ED: Negative for edema General Extremity: Negative for edema Neuro oriented x3 and no sensory deficits noted Sensorium / Orientation: alert Motor Exam: strength 5/5 throughout; Negative for general weakness Psych mental status grossly normal Skin no rashes or lesions noted and no wounds MDM MDM MDM Narrative Medical decision making narrative: Patient is evaluated for left arm pain. I suspect is more muscle skeletal as it seems to correlate with physical therapy she is doing some weight training however given her age will rule out cardiac process. Symptoms been present since yesterday so I feel like a single troponin is sufficient. EKG is not consistent with ACS. Cardiac workup is normal. Patient declining respiratory symptoms I do not think she needs further workup for pulmonary emboli. 2 view chest x-ray viewed by myself as well as radiology does not show any acute process.patient has improvement of pain with Tylenol. High since he troponin is less than 3 and I do not think this is any type of referred cardiac pain. At this time I feel that patient be comfortably discharged home. Suspect her pain is muscle skeletal. Possibly related to her physical therapy. Patient agreeable with plan of care. Patient blood sugar is elevated however she has a normal anion gap. Patient's department for blood glucose and can follow-up outpatient with her PCP for this. Lab Data Attestation: I reviewed the patient's lab results. Labs: Laboratory Results - last 24 hr 12/12/23 12:12 WBC 7.0 RBC 4.89 Hgb 14.0 Hct 41.9 MCV 85.7 MCH 28.6 MCHC 33.4 RDW Std Deviation 38.2 RDW Coeff of Gaetano 12.2 Plt Count 250 MPV 9.9 Immature Gran % (Auto) 0.600 Neut % (Auto) 57.6 Lymph % (Auto) 33.2 [place] % (Auto) 6.9 Eos % (Auto) 1.4 Baso % (Auto) 0.3 Absolute Neuts (auto) 4.0 Absolute Lymphs (auto) 2.32 Nucleated RBC % 0 Sodium 137 Potassium 4.1 Chloride 104 Carbon Dioxide 27.0 Anion Gap 6 BUN 8 Creatinine 0.70 Estim Creat Clear Calc 88.81 Est GFR (MDRD) Af Amer 112 Est GFR (MDRD) Non-Af 93 BUN/Creatinine Ratio 11.5 Glucose 248 H Calcium 9.1 Troponin I High Sens < 3 L Radiography Diagnostic Testing: Clinical Impression(s) from Imaging Studies Chest X-Ray 12/12/23 12:21 IMPRESSION: Normal x-ray examination of the chest. Electronically Signed: Diego Busch MD at 12:40 EDT , Rhythm Strip Rhythm Strip: Sinus Rhythm Rate: 93 Ectopy: None EKG Initial EKG: Attestation: I personally reviewed and interpreted this EKG as follows: Interpretation: Sinus Rhythm Comments: Normal sinus rhythm at a rate of 93 bpm Left axis deviation Minimal voltage criteria for LVH Normal ST segments No change. Prior EKG on 02/24/2022 Discharge Plan Triage Chief Complaint: Other, Pain/Inj ED Provider: Cheyanne Lara Dx/Rx/DC Orders Clinical Impression: Blood glucose elevated, Arm pain, left Instructions: High Blood Sugar (Hyperglycemia), ED Muscle Strain, Extremity Prescriptions: No Action ibuprofen 800 MG tablet 800 mg PO TID Qty: 30 1RF ondansetron [ondansetron] 4 MG tablet 4 mg PO Q8H PRN PRN (Reason: Nausea) Qty: 10 0RF Primary Care Provider: Care Physician,No Primary Referrals: Anjum Jaquez MD [Med Staff - Active Staff] - As soon as possible Care Physician,No Primary [Primary Care Provider] - Activity Restrictions/Additional Instructions: Your heart workup was normal. Your blood sugar was elevated today. I do recommend following up with primary care doctor for further evaluation of this to make sure that you are not developing diabetes. To continue take Tylenol as needed for your pain. If you do not have a primary care doctor with given referral for one on your discharge she reports Disposition Disposition: Home, Self Care
[2023-12-12] MEDS: Acetaminophen 325 MG Tablet 650 MG PO (12:10)
[2023-12-12 12:18] LABS: Absolute Lymphocyte Count 2.32 X10^3/uL (0.83-4.51); Basophil# 0.02 X10^3/uL; Basophil% 0.3 % (0-1); Eosinophils% 1.4 % (0-5); Hematocrit 41.9 % (37-47); Lymphocyte # 2.32 X10^3/ul (0.83-4.51); Lymphocyte % 33.2 % (19-41); Mean Corp Hgb Conc 33.4 g/dL (32-36); Mean Corpuscular Hgb 28.6 pg (27.0-32.0); Mean Corpuscular Volume 85.7 fL (81-99); Mean Platelet Vol. 9.9 fl (6.2-12.0); Monocyte# 0.48 X10^3/uL; Monocyte% 6.9 % (0-10); NRBC Flagged by Analyzer 0 % (0-5); Neutrophil # 4.03 X10^3/uL (2.7-7.7); Neutrophil % 57.6 % (47-70); Platelet Count 250 K/mm3 (150-450); RBC Distribution Width CV 12.2 % (11.6-14.6); RBC Distribution Width SD 38.2 fl (35.1-43.9); Red Blood Count 4.89 M/mm3 (4.2-5.4)
--- NOTE | 2023-12-12 12:21 | RAD_ITS ---
STUDY: X-RAY CHEST REASON FOR EXAM: Female, 53 years old. Chest pain and left arm pain. TECHNIQUE: PA and lateral views of the chest. COMPARISON: Comparison is made with prior study dated February 24, 2022. FINDINGS: The lungs are clear and expanded. There is no demonstrated pleural abnormality. Normal size heart. Normal mediastinum and alessandro. Normal visualized pulmonary arteries. Normal visualized aortic arch and descending thoracic aorta. Normal visualized thoracic spine. Normal visualized ribs, clavicles, and shoulders. There is no demonstrated abnormality of the visualized soft tissue structures of the upper abdomen. RAD/Chest PA and Lateral IMPRESSION: Normal x-ray examination of the chest. Electronically Signed: Diego Busch MD at 12:40 EDT ,
[2023-12-12 12:36] LABS: Anion Gap 6 (5-15); BUN 8 mg/dL (7-18); BUN/Creat Ratio 11.5 RATIO (10-20); Calcium,Total 9.1 mg/dL (8.5-10.1); Chloride 104 mmol/L (98-107); EST Glomerular Filtration Rate 93 mL/min (>60); Est Glom Filt Rate - Afr Amer 112 mL/min (>60); Estimated Creatinine Clearance 88.81 ml/min; Glucose 248 mg/dL (74-106); Potassium 4.1 mmol/L (3.5-5.1); Sodium Level 137 mmol/L (136-145); Troponin-I HS < 3 pg/mL (3.0-54.0)
[2023-12-12 13:45] VITALS: BP 160/84; PULSE 75; RESP 18; TEMP 35.9; O2SAT 99
== END 2023-12-12 13:46 | disposition home or self-care (01) ==
PROVIDERS: Emergency Provider Emergency Medicine; Visit Provider Emergency Medicine
DX: M79.602 Pain in left arm (principal); R73.9 Hyperglycemia, unspecified; R19.7 Diarrhea, unspecified; R11.0 Nausea; R06.00 Dyspnea, unspecified; Z87.891 Personal history of nicotine dependence; Z82.49 Family history of ischemic heart disease and other diseases of the circulatory system
CPT/HCPCS: 71046; 80048; 84484; 85025; 93005; 99282

== ENCOUNTER 2023-12-15 11:00 | Outpatient (RCR) | payer BC, SELFPAY ==
--- NOTE | 2023-09-13 12:22 | HP.OTEVAL_ITS ---
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 Date of Evaluation: 09/13/23 Occupational Therapist: CHRIS Harvey/José, CHT Subjective Subjective: This 53 year old female was seen for OT eval with dx of left CTR and left RF trigger finger- pt states she had sx on 2022. Pt states she had stitches in for 10 days. states incision are feeling tight and has limited RF ROM. Pain comes and goes pt is limited with all ADls and IADLs that require bilateral hand use. pt states she had tried to move her hand but has increase pain and tightness. Pt states she would like to return to her PLOF with ADls and IADls. Pain left hand: Current Pain Intensity: 5 Pain Intensity Range: 4 and 7 ROM Wrist: right 65/60 left 54/40 Opposition: Kapandji opposition scale right 10 left 4 MP: left RF 0/60 PIP: left -20/70 DIP: left -15/30 Strength Big Data Developer: right 30# left 5# Lateral Pinch: right 12# left 7# Tripod Pinch: right 8# left unable Edema Other: right distal phalanx 1.8 left 2.3 Sensation Sensation Comments: pt states left hand tingling went away after sx. is very happy with her results Quick DASH-Disab of Arm,Shoulder& Hand Quick DASH Score: 88.3325 Goals Goal:100% adherence to protocol: Yes Comment: CTR and trigger finger release guidelines Goal:Daily scar massage when approriate: Yes Comment: with use of elastomer at night Goal:ROM equal to unaffected hand: Yes Goal:Big Data Developer/Pinch strength at least 75% of unaffected hand: Yes Goal:No pain with affected hand use: Yes Comment: pain no greater than 2/10 with use of left hand with ADLS Goal:Full use of affected hand in daily activities including work: Yes Goal:Decrease scar hypersensitivity: Yes Rehabilitation General Assessment: pt arrives 3 weeks and 5 days s/p from left CTR and left RF trigger finger release. pt demo with limited left wrist and RF ROM, hypersensitive scar and demo with hypertrophic scar and pain with use of left hand. Pt would benefit from skilled OT services 1-2x week for 6 weeks to return pt to her PLOF. Today therapist ed pt on tendon glide, wrist ROM and ed pt on scar mtg- therapist vended elastomer for scar and rec'c gel brace for CTR scar. pt was given handout and demo understanding and agree to POC. Rehabilitation Potential: Good Anticipated Interventions Anticipated Interventions: A/AAROM/PROM, Strengthening, Edema Control, Scar Care, Triggerpoint Release, Desensitization, Sensory Retraining, Modalities, Joint Protection/Energy Conservation, Ergonomic Education, Education re Diagnosis, Manual Lymph Drainage, Caregiver Training and Home Program Visit Plan Frequency: 2-3x /Week Duration: 6 Weeks TEXT: Thank you for the opportunity to evaluate your patient. For Medicare and Medicare HMO plans, please review the plan of care and approve it. It will need to be FAXED BACK to us at [phone] for Medicare purposes. Please let me know if there are questions or concerns regarding this plan of care. Physician Signature: Date:
--- NOTE | 2023-12-01 12:08 | HP.OTREVAL ---
Re-Evaluation Intro: Everardo Muir PA-C, It has been my pleasure to treat SAIMA ESCAMILLA over the last 18 visits for left CTS and right RF Trigger finger. Please see the progress note below for an update on the occupational therapy plan of care! Subjective Subjective: Pt arrives to session prior to see for re-cheek pt has concerns with strength to return to work. Objective Objective/Function: Wrist: ROM left initial 54/40 current 60/45 Opposition: Kapandji opposition scale initial left 4 increased to 9/10 MP: left RF initial 0/60 current 0/70 PIP: left -20/70 current -12/100 DIP: left -15/30 current 0/65 Strength Golf Sales Associate: initial right 30# left 5# increased to 25# Lateral Pinch: initial right 12 left 7# increased 12# Tripod Pinch: initial right 8# left initial pt was unable 12# Pt has gains with her ROM and strength. Pt has concerns with returning to her job duties at this time. pt states she will discuses with [facility] Plan Plan Frequency: 2-3x /Week Duration: 2 Weeks Plan: BTE strengthening cont work simulation Goals Goals Patient Goals: Regain Mobility, Decrease Pain, Use Hand/Wrist/Arm Normally Again, Be More Independent in ADLS and Resume Former Household Responsibilities (Cooking,Cleaning,Yard, etc.) Goal:100% adherence to protocol: Yes Goal:Daily scar massage when approriate: Yes Goal:ROM equal to unaffected hand: Yes Goal:Golf Sales Associate/Pinch strength at least 75% of unaffected hand: Yes Goal:No pain with affected hand use: Yes Goal:Full use of affected hand in daily activities including work: Yes Goal:Decrease scar hypersensitivity: Yes Anticipated Interventions Anticipated Interventions Anticipated Interventions: A/AAROM/PROM, Strengthening, Edema Control, Scar Care, Triggerpoint Release, Desensitization, Sensory Retraining, Modalities, Joint Protection/Energy Conservation, Ergonomic Education, Education re Diagnosis, Manual Lymph Drainage, Caregiver Training and Home Program Re-Evaluation Ending Re-evaluation ending: Please do not hesitate to contact me at [phone] by phone or if you have questions or concerns regarding this new plan of care! Sincerely, Yumiko Martinez, OTR/L, CHT
--- NOTE | 2023-12-15 11:33 | HP.OTDCSUM ---
Discharge Summary D/C Summary: It has been my pleasure to treat SAIMA ESCAMILLA under orders from Everardo Muir PA-C, for the diagnosis of left CTS and right RF Trigger finger for a total of 24 visit(s). Please see the following information for a summary of their discharge status. Overall Improvement % Improvement: 75 Objective Objective/Function: Wrist: ROM left initial 54/40 current 60/55 Opposition: Kapandji opposition scale initial left 4 increased to 10/10 MP: left RF initial 0/60 current 0/75 PIP: left -20/70 current -5/100 DIP: left -15/30 current -265 Strength Nutritional Services Director: initial left 5# increased to 45# Lateral Pinch: initial left 7# increased 16# Tripod Pinch: initial left pt was unable 13# Pt has gains with her ROM and strength. pt has met OT goals at this time. Pt cont with HEP. Goals Patient Goals: Regain Mobility, Decrease Pain, Use Hand/Wrist/Arm Normally Again, Be More Independent in ADLS and Resume Former Household Responsibilities (Cooking,Cleaning,Yard, etc.) Goal:100% adherence to protocol: Yes Goal Progress: Goal Met Goal:Daily scar massage when approriate: Yes Goal Progress: Goal Met Goal:ROM equal to unaffected hand: Yes Goal Progress: Goal Met Goal:Nutritional Services Director/Pinch strength at least 75% of unaffected hand: Yes Goal Progress: Goal Met Goal:No pain with affected hand use: Yes Goal:Full use of affected hand in daily activities including work: Yes Goal Progress: Goal met. Goal:Decrease scar hypersensitivity: Yes Goal Progress: Progressing Other Goal: wt. bearing as tolerate. Plan Plan: Gym eq. to increase strength D/C Information Discharge Comments: pt was seen for 24 visits following a left RF trigger finger release. Pt initially struggled with scar and edema. once improved pt made great gains with use of her left non dominate hand for ADls and IADLs. Pt states she is IND. with ADLs, IADLs and home mtg. task. IND. with driving. pt has met goals. Pt reports she will continue with her HEP and return to use of left Non dominate hand as tolerated. pt agrees to D/C. d/c sentence: If there are questions or concerns regarding this patient's occupational therapy, please fell free to call me at [phone]. Thank you for the referral of this patient. Sincerely, Yumiko Martinez OTR/José, CHT
== END 2023-12-15 19:00 | disposition home or self-care (01) ==
LOC: OT 11:00
PROVIDERS: Referring Provider Physician Assistant Surgical; Visit Provider Physician Assistant Surgical
DX: G56.02 Carpal tunnel syndrome, left upper limb (principal)
CPT/HCPCS: 97035; 97110; 97140; 97166; 97530

== ENCOUNTER 2025-04-19 17:35 | Emergency (ER) | payer BC, SELFPAY ==
[2025-04-19 17:37] VITALS: BP 158/92; PULSE 91; RESP 16; TEMP 37.3; O2SAT 99; BMI 37.3
--- NOTE | 2025-04-19 19:54 | EDS_ITS ---
HPI <PATIENCE Rodriguez - Last Filed: 04/19/25 21:01> History of Present Illness Chief Complaint: Headache Narrative Narrative: 54-year-old female with history of migraines presents with headache x 1 week. She states it is generalized pressure and throbbing pain. Nothing makes it better or worse. It is always present. She denies fever, chills, nausea or vomiting, or visual changes. No focal motor or sensory changes. The only medication she takes is a gummy vitamin. States she had migraines years ago and had a normal MRI of the brain. She does not take any migraine medications now and this does not feel similar to that. She went to [facility] urgent care and was sent to the ED for evaluation. PFSH <PATIENCE Rodriguez - Last Filed: 04/19/25 21:01> [facility] Medical History Giang esophagus Carpal tunnel syndrome Contusion of bone Home Medications ?Medication ?Instructions ?Recorded ?Last Taken ?Type ibuprofen 800 mg tablet 800 mg PO TID #30 tabs 12/18 Unknown Rx ondansetron 4 mg disintegrating 4 mg PO Q8H PRN PRN Na usea #10 tabs 02/06/21 Unknown Rx tablet Allergy/AdvReac Type Severity Reaction Status Date / Time diphenhydramine (From Allergy Severe Anaphylaxis Verified 04/19/25 19:57 Benadryl) meperidine (From Demerol) Allergy Severe Itching Verified 04/19/25 19:57 tetracycline AdvReac Severe UTI Verified 04/19/25 19:57 Family History Mother Cancer cervical Other Arthritis Asthma Diabetes Heart disease Hypertension Myocardial infarction Surgical History History of cholecystectomy history of HALO Social History Smoking Status: Former smoker quit date: 09/05/03 Tobacco: How many years used: 10 alcohol intake: never substance use type: does not use what type of physical activity do you participate in: aerobics ROS <PATIENCE Rodriguez - Last Filed: 04/19/25 21:01> ROS ED ROS Narrative Constitutional: Negative for fever, chills, malaise. GI: Negative for nausea, vomiting. Neuro: Positive for headache, negative for motor/sensory dysfunction. EXAM <PATIENCE Rodriguez - Last Filed: 04/19/25 21:01> Physical Exam Narrative Exam Narrative: CONST: Patient sitting in no acute distress. EYES: Normal inspection. PERRL, EOMI, no nystagmus ENT: Normal inspection, moist mucous membranes. NECK: Normal inspection. No meningismus. RESP: No respiratory distress, CTAB. CVS: Regular rate and rhythm, no murmur, no gallop. SKIN: Color normal, no rash, warm, dry, intact. EXTREMITIES: Normal appearance, no pedal edema. NEURO: Alert and answering questions appropriately. Face symmetric, 5/5 upper lower extremity strength, no drift, normal [id number] bilaterally. PSYCH: Normal affect. Const Vital Signs: 04/19/25 17:37 04/19/25 20:56 Temperature 99.2 F H 98.3 F Temperature Source Oral Pulse Rate 91 78 Respiratory Rate 16 16 Blood Pressure 158/92 H 138/82 H Blood Pressure Mean 114 100 Pulse Ox 99 98 Oxygen Delivery Method Room Air <Dr. Edgar Pichardo MD - Last Filed: 04/19/25 20:33> Physical Exam Const Vital Signs: 04/19/25 17:37 04/19/25 20:56 Temperature 99.2 F H 98.3 F Temperature Source Oral Pulse Rate 91 78 Respiratory Rate 16 16 Blood Pressure 158/92 H 138/82 H Blood Pressure Mean 114 100 Pulse Ox 99 98 Oxygen Delivery Method Room Air MDM <PATIENCE Rodriguez - Last Filed: 04/19/25 21:01> [facility] MDM Narrative Medical decision making narrative: Differential includes but not limited to tension headache, migraine, intracranial process 1 week of generalized pressure and throbbing headache that is constant without aggravating or alleviating factors. No associated symptoms. She is awake alert no distress. Vital stable. Nonfocal neurological exam. She has no infectious signs or symptoms in her mouth concern for meningitis or encephalitis. CT brain is negative. She feels better after Toradol and will be discharged home with instructions to follow-up with primary care. I have personally performed a face to face assessment of the patient and have reviewed the MARY CARMEN Note. I performed a substantive portion of the visit including all aspects of the following. My garcia findings include: History is [54-year-old female history of migraine headaches. States the last week she has had head pressure. Denies any fall or trauma not on any blood thinners. Recently her mother's been diagnosed with pancreatic cancer and she was wondering if this could be related to stress. No family history of intracranial bleeds or aneurysms. Denies any fever. No neck pain. No sinus congestion.] Exam is [well-appearing 54-year-old female. Vital signs stable afebrile. H EENT exam pupils round react light. Extra motions are intact. No signs of trauma to her face or scalp. No frontal or maxillary sinus tenderness. Neck nontender no lymphadenopathy. No meningismus. Able to touch chin to chest. Back nontender. Lungs clear. Heart regular rhythm. Abdomen soft nontender. Moving all 4 extremities. 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 Dorsi plantarflexion intact. Nontender. No edema. Normal range of motion. Neurologic exam normal. Awake alert oriented. Answering questions following commands. No facial droop. Normal speech. Fingertip to nose [id number] within normal limits no drift.] Medical Decision Making [54-year-old female headache benign exam CT pending. She will be treated with Compazine and Toradol.] Other additions or changes: [None] Radiography Diagnostic Testing: Clinical Impression(s) from Imaging Studies Brain CT 04/19/25 20:10 IMPRESSION: Unremarkable head CT. Reading Location: [id number] <Dr. Edgar Pichardo MD - Last Filed: 04/19/25 20:33> [facility] Narrative Medical decision making narrative: I have personally performed a face to face assessment of the patient and have reviewed the MARY CARMEN Note. I performed a substantive portion of the visit including all aspects of the following. My garcia findings include: History is [54-year-old female history of migraine headaches. States the last week she has had head pressure. Denies any fall or trauma not on any blood thinners. Recently her mother's been diagnosed with pancreatic cancer and she was wondering if this could be related to stress. No family history of intracranial bleeds or aneurysms. Denies any fever. No neck pain. No sinus congestion.] Exam is [well-appearing 54-year-old female. Vital signs stable afebrile. H EENT exam pupils round react light. Extra motions are intact. No signs of trauma to her face or scalp. No frontal or maxillary sinus tenderness. Neck nontender no lymphadenopathy. No meningismus. Able to touch chin to chest. Back nontender. Lungs clear. Heart regular rhythm. Abdomen soft nontender. Moving all 4 extremities. 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 Dorsi plantarflexion intact. Nontender. No edema. Normal range of motion. Neurologic exam normal. Awake alert oriented. Answering questions following commands. No facial droop. Normal speech. Fingertip to nose [id number] within normal limits no drift.] Medical Decision Making [54-year-old female headache benign exam CT pending. She will be treated with Compazine and Toradol.] Other additions or changes: [None] History & Record Review Additional record(s) reviewed:: Prior inpatient record, Prior outpatient record, Prior ED visit and Prior labs Radiography Diagnostic Testing: Clinical Impression(s) from Imaging Studies Brain CT 04/19/25 20:10 IMPRESSION: Unremarkable head CT. Reading Location: [facility] Discharge Plan Triage Chief Complaint: Headache ED Midlevel Provider: Yudelka Levy ED Provider: Edgar Pichardo Dx/Rx/DC Orders Clinical Impression: Headache Instructions: Self-Care for Headaches Prescriptions: No Action ibuprofen 800 MG tablet 800 mg PO TID Qty: 30 1RF ondansetron [ondansetron] 4 MG tablet 4 mg PO Q8H PRN PRN (Reason: Nausea) Qty: 10 0RF Primary Care Provider: Care Physician,No Primary Referrals: Care Physician,No Primary [Primary Care Provider] - Activity Restrictions/Additional Instructions: A CT scan of your brain was normal. Take Tylenol or Motrin as needed and follow-up with your primary care doctor. Print Language: Bulgarian Disposition Disposition: Home, Self Care Discharge Date/Time: 04/19/25 21:00
--- NOTE | 2025-04-19 20:10 | CT_ITS ---
PROCEDURE: CT BRAIN/HEAD WITHOUT CONTRAST 04/19/2025 REASON FOR EXAM: HEADACHE TECHNIQUE: CT BRAIN/HEAD WITHOUT CONTRAST Coronal and Sagittal reconstruction series were provided. One or more dose reduction techniques were used (e.g., Automated exposure control, adjustment of the mA and/or kV according to patient size, use of iterative reconstruction technique. RADIATION DOSE SUMMARY: CTDlvol: 44.99 mGy DLP: 779.24 mGycm COMPARISON: None. FINDINGS: No acute intracranial hemorrhage, extra-axial collection, mass effect or evidence of acute infarct. Ventricles and subarachnoid spaces are normal in size. Orbital contents are unremarkable. Intact skull base and calvarium. Clear paranasal sinuses and mastoid air cells. CT/Brain/Head without Contrast IMPRESSION: Unremarkable head CT. Reading Location: [id number]
--- OUTSIDE RECORDS SUMMARY | 2025-04-19 20:22 | XMS RPT_ITS | CCD ---
Author Organization [facility] Care Team Providers Care Supervisor Speech Name Role Phone Unavailable Primary Care Provider UnavailPRINCE Flood Referring Unavailable Care Physician, No Primary Primary Care Unava ilable Leon Ward Referring Unavailable Leon Ward Attending Unavailable Leon Ward Referring Unavailable Leon Ward Attending Unavailable Care Physician, No Primary Primary Care Unava ilable Allergies Allergy Classification Reported Allergen(s) Allergy Type Date of Onset Reaction(s) Facility (12 sources) diphenhydrAMINE; Translations: [DIPHENHYDRAMINE] Drug Allergy 2 Anaphylaxis [facility] (12 sources) Meperidine; Translations: [MEPERIDINE] Drug Allergy 2 Itching [facility] (12 sources) Tetracycline; Translations: [TETRACYCLINE] Drug Allergy 2 Intolerance [facility] (1 source) diphenhydrAMINE Drug Allergy 4 [facility] (1 source) Meperidine Drug Allergy 4 [facility] (1 source) Tetracycline Drug Allergy 4 [facility] Medications Current Medications Medication Drug Class(es) Dates Sig (Normalized) Sig (Original) amoxicillin 875 mg / clavulanate 125 mg oral tablet (1 source) Penicillin-class Antibacterial Start: 01-09-2024 End: 01-16-2024 take 1 tablet by mouth twice daily amoxicillin-clavu lanate potassium (AUGMENTIN) 875-125 mg per tablet Take 1 tablet by mouth two times a day for 7 days. 14 tablet 0 01/09/2024 01/16/2024 Active benzonatate 100 mg oral capsule (2 sources) Non-narcotic Antitussive Start: 01-09-2024 End: 01-16-2024 take 1 capsule by mouth every eight hours as needed benzonatate (TESSALON PERLE) 100 mg capsule Take 1 capsule by mouth three times a day as needed for cough for up to 7 days. 21 capsule 0 01/09/2024 01/16/2024 Active Start: 10-13-2023 End: 10-20-2023 take 1 capsule by mouth every eight hours as needed benzonatate (TESSALON PERLE) 100 mg capsule Take 1 capsule by mouth three times a day as needed for cough for up to 7 days. 21 capsule 0 10/13/2023 10/20/2023 Active Comment on above: Take 1 capsule by [facility] three times a day as needed for cough for up to 7 days. cyclobenzaprine hydrochloride 10 mg oral tablet (1 source) Muscle Relaxant Start: take 1 tablet by mouth every eight hours as needed cyclobenzaprine (FLEXERIL) 10 mg tablet Take 1 tablet by mouth three times a day as needed for muscle spasm. 21 tablet 11/09/2024 Active fluconazole 150 mg oral tablet (2 sources) Azole Antifungal Start: End: take 1 tablet by mouth once daily fluconazole (DIFLUCAN) 150 mg tablet Take 1 tablet by mouth once daily for 1 day. 1 tablet 0 02/16/2024 02/17/2024 Active ibuprofen 800 mg oral tablet (5 sources) Nonsteroidal Anti-inflammatory Drug Start: take 800 mg by mouth three times daily Ibuprofen Active 800 MG PO THREE TIMES A DAY December 18, 2020 12:00am metroNIDAZOLE 500 mg oral tablet (1 source) Nitroimidazole Antimicrobial Start: End: take 1 tablet by mouth twice daily metroNIDAZOLE (FLAGYL) 500 mg tablet Take 1 tablet by mouth two times a day for 7 days. 14 tablet 0 02/17/2024 02/24/2024 Active ondansetron 4 mg disintegrating oral tablet (5 sources) Serotonin-3 Receptor Antagonist Start: take 4 mg by mouth every eight hours as needed Ondansetron Active 4 MG PO EVERY 8 HOURS NEEDED February 06, 2021 12:00am predniSONE 10 mg oral tablet (1 source) Start: End: 03-16-2 025 predniSONE (DELTASONE) 10 mg tablet Take 4 tabs daily for 3 days, then 2 tabs daily for 3 days, then 1 tab daily for 3 days with food. 21 tablet 11/09/2024 11/18/2024 Active Problems Active Problems Problem Classification Problem Date Documented Da te Episodic/Chronic Calculus of urinary tract (5 sources) Kidney stone; Translations: [Calculus of kidney] 02-06-2021 Episodic Diabetes mellitus without complication (2 sources) Hyperglycemia; Translations: [Hyperglycemia, unspecified] 12-12-2023 Episodic Esophageal disorders (5 sources) Giang's esophagus; Translations: [Giang's esophagus without dysplasia] 12-30-2020 Chronic Other connective tissue disease (2 sources) Pain in left arm; Translations: [Pain in left arm] 12-12-2023 Episodic Other female genital disorders (1 source) Pruritus of vagina; Translations: [Other specified noninflammatory disorders of vagina] 02-16-2024 Episodic Other female genital disorders (1 source) Burning sensation of vagina; Translations: [Unspecified condition associated with female genital organs and menstrual cycle] 02-16-2024 Episodic Other injuries and conditions due to external causes (5 sources) Bone injury; Translations: [Other injury of unspecified body region, initial encounter] 12-30-2020 Episodic Other lower respiratory disease (4 sources) Rib pain; Translations: [Pleurodynia] 11-09-2024 Episodic Other nervous system disorders (5 sources) Carpal tunnel syndrome; Translations: [Carpal tunnel syndrome, unspecified upper limb] 12-30-2020 Chronic Other upper respiratory infections (1 source) Chronic sinusitis; Translations: [Chronic sinusitis, unspecified] 01-09-2024 Chronic Residual codes; unclassified (5 sources) Peripheral edema; Translations: [Edema, unspecified] 12-31-2020 Episodic Sprains and strains (1 source) Strain of muscle of chest wall; Translations: [Strain of muscle and tendon of front wall of thorax, initial encounter] 11-09-2024 Episodic Viral infection (6 sources) Disease caused by 2019-nCoV; Translations: [COVID-19] 10-13-2023 Episodic Past or Other Problems Problem Classification Problem Date Documented Da te Episodic/Chronic Other lower respiratory disease (1 source) Pleurodynia; Translations: [Rib pain on right side] Onset: 11-09-2024 Episodic Unclassified (5 sources) history of HALO 04-06-2022 Results Test Name Value Interpretation Reference Range Facility Basic metabolic 2000 panelon 03-06-2025 Anion gap [Moles/Vol] 11 mmol/L Normal 8-15 [facility] Comment on above: Order Comment: Speci men Type: BLOOD SPECIMEN Ordering Facility: External Submitter Address: , , Performed By: #### 2 4321-2 #### [facility] CLIA [id number] [address] [place] [address] [place] Calcium [Mass/Vol] 9.0 mg/dL Normal 8.5-10.2 [facility] Comment on above: Order Comment: Speci men Type: BLOOD SPECIMEN Ordering Facility: External Submitter Address: , , Performed By: #### 2 4321-2 #### [facility] CLIA [id number] [address] [place] [address] [place] Chloride [Moles/Vol] 102 mmol/L Normal 98-107 [facility] Comment on above: Order Comment: Speci men Type: BLOOD SPECIMEN Ordering Facility: External Submitter Address: , , Performed By: #### 2 4321-2 #### [facility] CLIA [id number] [address] [place] [id number] [place] CO2 [Moles/Vol] 25 mmol/L Normal 22-30 [facility] Comment on above: Order Comment: Speci men Type: BLOOD SPECIMEN Ordering Facility: External Submitter Address: , , Performed By: #### 2 4321-2 #### [facility] CLIA [id number] [address] [place] [id number] [place] Creatinine [Mass/Vol] 0.53 mg/dL Low 0.58-0.96 [facility] Comment on above: Order Comment: Speci men Type: BLOOD SPECIMEN Ordering Facility: External Submitter Address: , , Performed By: #### 2 4321-2 #### [facility] CLIA [id number] [address] [address] [place] Creatinine and Glomerular filtration rate.predicted panel (S/P/Bld) 109 mL/min/1.73m??? Normal >=60 [facility] Comment on above: Order Comment: Keena ewing Type: BLOOD SPECIMEN Ordering Facility: External Submitter Address: , , Result Comment: Louisa mated Glomerular Filtration Rate (eGFR) is calculated using the 2020 CKD-EPI creatinine equation. This equation utilizes serum creatinine, sex, and age as parameters. The creatinine assay has traceable calibration to isotope dilution-mass spectrometry. Refer to KDIGO guidelines for clinical interpretation. In patients with unstable renal function, e.g. those with acute kidney injury, the eGFR may not accurately reflect actual GFR. Performed By: #### 2 4321-2 #### [facility] CLIA [id number] [address] [address] [place] Glucose [Mass/Vol] 196 mg/dL High 74-99 [facility] Comment on above: Order Comment: Speckathryn ewing Type: BLOOD SPECIMEN Ordering Facility: External Submitter Address: , , Result Comment: The [place] Diabetes Association (ADA) provides guidance for cutoff values for fasting glucose and random glucose. The ADA defines fasting as no caloric intake for at least 8 hours. Fasting plasma glucose results between 100 to 125 mg/dL indicate increased risk for diabetes (prediabetes). Fasting plasma glucose results greater than or equal to 126 mg/dL meet the criteria for diagnosis of diabetes. In the absence of unequivocal hyperglycemia, results should be confirmed by repeat testing. In a patient with classic symptoms of hyperglycemia or hyperglycemic crisis, random plasma glucose results greater than or equal to 200 mg/dL meet the criteria for diagnosis of diabetes. Reference: Standards of Medical Care in Diabetes 2016, [place] [employer] Association. Diabetes Care. 2016.39(Suppl 1). Performed By: #### 2 4321-2 #### [facility] CLIA [id number] [address] [address] [place] Potassium [Moles/Vol] 4.2 mmol/L Normal 3.7-5.1 [facility] Comment on above: Order Comment: Speci men Type: BLOOD SPECIMEN Ordering Facility: External Submitter Address: , , Performed By: #### 2 4321-2 #### [facility] CLIA [id number] [facility] [place] Sodium [Moles/Vol] 138 mmol/L Normal 136-144 [facility] Comment on above: Order Comment: Speci men Type: BLOOD SPECIMEN Ordering Facility: External Submitter Address: , , Performed By: #### 2 4321-2 #### [facility] CLIA [id number] [address] [place] [address] [place] Urea nitrogen [Mass/Vol] 11 mg/dL Normal 7-21 [facility] Comment on above: Order Comment: Speci men Type: BLOOD SPECIMEN Ordering Facility: External Submitter Address: , , Performed By: #### 2 4321-2 #### [facility] CLIA [id number] [address] [place] [address] [place] CNOVon 11-09-2024 [facility] SAIMA KERR ([id number]) 1970 F Date Time Provider Department 11/09/24 10:30 AM [facility] During your visit today, we recorded the following information about you: Temperature Pulse Respiration Blood pressure 98.1 degrees 75/minute 18/minute 156/83 Weight 85.2 kg Prince Serra APRN.CNP 11/09/2024 12:31 PM Signed This note was created using NoteWriter. Subjective Saima Kerr is a 54 year old female. 54 year old female with no PMH presents for rib pain Acute onset 2 days ago Right sided ribs Endorses she was sneezing and [place] a sharp pain in right ribs at time of sneeze Has continued +pain with touching +pain with moving +pain with deep breathing Denies skin rash or lesions. Denies CP Denies dyspnea Denies CP Denies tobacco usage The history is provided by the patient. No senior staff specialized employment was used. Chest Pain This is a new problem. The current episode started 2 days ago. The problem occurs constantly. The problem has been gradually worsening. The pain is associated with coughing and raising an arm (sneezing). The pain is present in the lateral region. The pain is at a severity of 7/10. The pain is moderate. The quality of the pain is described as sharp. The pain does not radiate. The symptoms are aggravated by certain positions, deep breathing and exertion. Pertinent negatives include no abdominal pain, no back pain, no claudication, no cough, no diaphoresis, no dizziness, no exertional chest pressure, no headaches, no hemoptysis, no irregular heartbeat, no leg pain, no lower extremity edema, no malaise/fatigue, no nausea, no near-syncope, no numbness, no orthopnea, no shortness of breath, no sputum production, no syncope, no vomiting and no weakness. She has tried rest for the symptoms. The treatment provided no relief. There are no known risk factors. No past medical history on file. No past surgical history on file. ALLERGIES Diphenhydramine, Meperidine, and Tetracycline MEDICATIONS cyclobenzaprine (FLEXERIL) 10 mg tablet Take 1 tablet by mouth three times a day as needed for muscle spasm. predniSONE (DELTASONE) 10 mg tablet Take 4 tabs daily for 3 days, then 2 tabs daily for 3 days, then 1 tab daily for 3 days with food. No family history on file. Social History Tobacco Use Smoking status: Former Types: Cigarettes Passive exposure: Past Smokeless tobacco: Never Review of Systems Constitutional: Negative for diaphoresis and malaise/fatigue. Respiratory: Negative for cough, hemoptysis, sputum production and shortness of breath. Cardiovascular: Positive for chest pain. Negative for orthopnea, claudication, syncope and near-syncope. Gastrointestinal: Negative for abdominal pain, nausea and vomiting. Musculoskeletal: Negative for back pain. Neurological: Negative for dizziness, weakness, numbness and headaches. Objective BP 156/83 Pulse 75 Temp 36.7 ?C (98.1 ?F) Resp 18 Wt 85.2 kg (187 lb 13.3 oz) SpO2 100% Physical Exam Vitals and nursing note reviewed. Constitutional: General: She is not in acute distress. Appearance: Normal appearance. She is normal weight. She is not ill-appearing, toxic-appearing or diaphoretic. HENT: Head: Normocephalic and atraumatic. Right Ear: Ear canal and external ear normal. Left Ear: Ear canal and external ear normal. Nose: Nose normal. No congestion or rhinorrhea. Mouth/Throat: Mouth: Mucous membranes are moist. Pharynx: No oropharyngeal exudate or posterior oropharyngeal erythema. Eyes: General: Right eye: No discharge. Left eye: No discharge. Extraocular Movements: Extraocular movements intact. Conjunctiva/sclera: Conjunctivae normal. Pupils: Pupils are equal, round, and reactive to light. Cardiovascular: Rate and Rhythm: Normal rate and regular rhythm. Pulses: Normal pulses. Heart sounds: Normal heart sounds. No murmur heard. No friction rub. Pulmonary: Effort: Pulmonary effort is normal. No respiratory distress. Breath sounds: Normal breath sounds. No stridor. No wheezing, rhonchi or rales. Comments: Right mid axillary and diffuse TTP rib 5, 6, and 7 No flail chest Chest rises and falls equally Lungs CTA No ecchymosis No retractions Chest: Chest wall: Tenderness present. Abdominal: General: Abdomen is flat. There is no distension. Palpations: Abdomen is soft. There is no mass. Tenderness: There is no abdominal tenderness. There is no right CVA tenderness, left CVA tenderness, guarding or rebound. Hernia: No hernia is present. Musculoskeletal: General: No swelling, tenderness, deformity or signs of injury. Normal range of motion. Cervical back: Normal range of motion and neck supple. No rigidity. Right lower leg: No edema. Left lower leg: No edema. Lymphadenopathy: Cervical: No cervical adenopathy. S (more content not included)... Normal [facility] XR RIB/CHST 3V AP RIB/OBL/CH ST Jaycob 11-09-2024 XR RIB/CHST 3V AP RIB/OBL/CHST R * * *Final Report* * * DATE OF EXAM: Nov 09 2024 10:56AM WOX [id number] - XR RIB/CHST 3V AP RIB/OBL/CHST R / PROCEDURE REASON: Rib pain on right side * * * * Physician Interpretation * * * * PROCEDURE: Right RIBS with chest INDICATION: Rib pain on right side .sneezed 2 days ago and has pain lower right posterior rib area marked by a bb TECHNIQUE: XR RIB/CHST 3V AP RIB/OBL/CHST R COMPARISON: None FINDINGS: Cardiomediastinal silhouette is within normal limits. No acute consolidation, pleural effusion or pneumothorax. The right ribs are intact without acute fracture, sclerotic or lytic lesion. IMPRESSION: No acute abnormality Electrolog Operator: PSCB Transcribe Date/Time: Nov 09 2024 11:02A Dictated by : HELENA COOPER MD This examination was interpreted and the report reviewed and electronically signed by: HELENA COOPER MD on Nov 09 2024 11:03AM EST [id number] Normal [facility] XR Ribs - right Views and est PAon 11-09-2024 IMPRESSION: No acute abnormality Electrolog Operator: PSCB Transcribe Date/Time: Nov 09 2024 11:02A Dictated by : HELENA COOPER MD This examination was interpreted and the report reviewed and electronically signed by: HELENA COOPER MD on Nov 09 2024 11:03AM EST DIVISION OF RADIOLOGY * * *Final Report* * * DATE OF EXAM: Nov 09 2024 10:56AM WOX [id number] - XR RIB/CHST 3V AP RIB/OBL/CHST R / PROCEDURE REASON: Rib pain on right side * * * * Physician Interpretation * * * * PROCEDURE: Right RIBS with chest INDICATION: Rib pain on right side .sneezed 2 days ago and has pain lower right posterior rib area marked by a bb TECHNIQUE: XR RIB/CHST 3V AP RIB/OBL/CHST R COMPARISON: None FINDINGS: Cardiomediastinal silhouette is within normal limits. No acute consolidation, pleural effusion or pneumothorax. The right ribs are intact without acute fracture, sclerotic or lytic lesion. DIVISION OF RADIOLOGY Provider, [facility] - 11/09/2024 * * *Final Report* * * DATE OF EXAM: Nov 09 2024 10:56AM WOX [id number] - XR RIB/CHST 3V AP RIB/OBL/CHST R / PROCEDURE REASON: Rib pain on right side * * * * Physician Interpretation * * * * PROCEDURE: Right RIBS with chest INDICATION: Rib pain on right side .sneezed 2 days ago and has pain lower right posterior rib area marked by a bb TECHNIQUE: XR RIB/CHST 3V AP RIB/OBL/CHST R COMPARISON: None FINDINGS: Cardiomediastinal silhouette is within normal limits. No acute consolidation, pleural effusion or pneumothorax. The right ribs are intact without acute fracture, sclerotic or lytic lesion. IMPRESSION IMPRESSION: No acute abnormality Electrolog Operator: PSCB Transcribe Date/Time: Nov 09 2024 11:02A Dictated by : HELENA COOPER MD This examination was interpreted and the report reviewed and electronically signed by: HELENA COOPER MD on Nov 09 2024 11:03AM EST [facility] Radiology Study observation (narrative) Jeana jones [facility] XR Ribs - right Views and Ch est PAOrdered By: Ccf Provider on 11-09-2024 [facility] Absolute lymphocyte countOrd ered By: Cheyanne Lara on 12-12-2023 Lymphocytes Auto (Unsp spec) [#/Vol] 2.32 10*3/uL 0.83-4.51 [facility] Automated lymphocyte count a s percentage of total leukocytesOrdered By: Cheyanne Lara on 12-12-2023 Lymphocytes/100 WBC Auto (Unsp spec) 33.2 % 19-41 [facility] Basophil percentageOrdered B y: Cheyanne Lara on 12-12-2023 Basophils/100 WBC (Bld) 0.3 % 0-1 [facility] Chloride [Moles/Vol] 104 mmol/L 98-107 [facility] Eosinophils/100 WBC (Bld) 1.4 % 0-5 [facility] Glucose [Mass/Vol] 248 mg/dL 74-[address] [facility] Comment on above: Glucose result great er than or equal to 200 mg/dLsuggests DIABETES MELLITUS per A.D.A. criteria. Hemoglobin (Bld) [Mass/Vol] 14.0 g/dL 12.0-15.0 [facility] Monocytes/100 WBC (Bld) 6.9 % 0-10 [facility] Neutrophils (Bld) [#/Vol] 4.0 10*3/uL 2.0-7.7 [facility] Neutrophils/100 WBC (Bld) 57.6 % 47-70 [facility] Potassium [Moles/Vol] 4.1 mmol/L 3.5-5.1 [facility] Sodium [Moles/Vol] 137 mmol/L 136-[address] [facility] WBC (Bld) [#/Vol] 7.0 10*3/uL 4.4-11.[address] [facility] Determination of erythrocyte mean corpuscular volume (MCV)Ordered By: Cheyanne Lara on 12-12-2023 MCV (RBC) [Entitic vol] 85.7 fL 81-99 [facility] Erythrocyte distribution wid th ratioOrdered By: Cheyanne Lara on 12-12-2023 Erythrocyte distribution width (RBC) [Ratio] 12.2 % 11.6-14.6 [facility] Erythrocyte distribution wid th standard deviationOrdered By: Cheyanne Lara on 12-12-2023 Erythrocyte distribution width (RBC) [Entitic vol] 38.2 fL 35.1-43.9 [facility] Hematocrit Auto (Bld) [Volum e fraction]Ordered By: Cheyanne Lara on 12-12-2023 Hematocrit (Bld) [Volume fraction] 41.9 % 37-47 [facility] Immature granulocytes/100 WB C Auto (Bld)Ordered By: Cheyanne Lara on 12-12-2023 Immature granulocytes/100 WBC (Bld) 0.600 % 0.0-0.9 [facility] Comment on above: IG% - Immature Granu locytes (promyelocytes, myelocytes and metamyelocytes) > 1% indicates that a LEFT SHIFT is Present. Laboratory - Chemistry and C hemistry - challengeOrdered By: Cheyanne Lara on 12-12-2023 CO2 [Moles/Vol] 27.0 mmol/L 21.0-32.0 [facility] Urea nitrogen/Creatinine [Mass ratio] 11.5 mg/mg 10-20 [facility] Laboratory - Hematology and Cell countsOrdered By: Cheyanne Lara on 12-12-2023 MCH (RBC) [Entitic mass] 28.6 pg 27.0-32.0 [facility] MCHC (RBC) [Mass/Vol] 33.4 g/dL 32-36 [facility] Nucleated RBC/100 WBC (Bld) [Ratio] 0 % 0-5 [facility] Platelet mean volume (Bld) [Entitic vol] 9.9 fL 6.2-12.0 [facility] Platelets (Bld) [#/Vol] 250 10*3/uL 150-450 [facility] No Panel InformationOrdered By: Cheyanne Lara on 12-12-2023 Estimated Creatinine Clearance Calc 88.81 ml/min [facility] Estimated GFR (MDRD) Amer 112 mL/min >60 [facility] Comment on above: GFR Calc Estimated GFR (MDRD) Non-Af Amer 93 mL/min >60 [facility] Comment on above: Non- GFR Calc Troponin I High Sensitivity < 3 pg/mL 3.0-54.0 [facility] Comment on above: Please Note: New Brissa t Units and Gender Specific Reference Ranges. For more information see Policy Stat Procedure [place] High Sensitivity Troponin (TNIH) and attachments. RBC Auto (Bld) [#/Vol]Ordere d By: Cheyanne Lara on 12-12-2023 RBC (Bld) [#/Vol] 4.89 10*6/uL 4.2-5.4 [facility] Serum or plasma calcium gabe urement (mass/volume)Ordered By: Cheyanne Lara on 12-12-2023 Calcium [Mass/Vol] 9.1 mg/dL 8.5-10.[address] [facility] Serum or plasma creatinine m easurement (mass/volume)Ordered By: Cheyanne Lara on 12-12-2023 Creatinine [Mass/Vol] 0.70 mg/dL 0.55-1.02 [facility] Comment on above: The validity of the calculated GFR & GFRAA in patients over 70 years has not been determined. Clinical correlation is essential. Serum or plasma urea nitroge n measurement (mass/volume)Ordered By: Cheyanne Lara on 12-12-2023 Urea nitrogen [Mass/Vol] 8 mg/dL 7-18 [facility] Thin prep Papanicolaou smear with manual screeningOrdered By: Cheyanne Lara on 12-12-2023 Thin prep Papanicolaou smear with manual screening 6 -15 [facility] Cervical or vagninal specime n microscopic examination by cytology stain (reported ason 09-03-2022 Cytology report Cyto stain Doc (Cvx/Vag) Comment . [facility] Work Phone: Comment on above: The Pap smear is a s creening test designed to aid in thedetection of premalignant and malignant conditions of theuterine cervix. It is not a diagnostic procedure andshould not be used as the sole means of detecting cervicalcancer. Both false-positive and false-negative reports dooccur. Detection in cervical specim en of any of human papilloma virus (HPV) 16, 18, 31, 33,on 09-03-2022 HPV 16+18+31+33+35+39+45+51 +52+56+58+59+66+68 DNA Probe+sig amp Ql (Cvx) Negative Negative [facility] Work Phone: Comment on above: This nucleic acid am plification test detects fourteen high-risk HPV types (16,18,31,33,35,39,45,51,52,56,58,59,66,68)without differentiation. Laboratory - Cytologyon 08-07 Show Card Writer Cyto stain Nom (Cvx/Vag) [ID] Comment . [facility] Work Phone: Comment on above: Gemma Almendarez, Cytotec hnologist (ASCP) Laboratory - Miscellaneous t estson 09-03-2022 Service comment (Unsp spec) [Interp] Comment . [facility] Work Phone: Comment on above: This liquid based Th inPrep(R) pap test was screened withthe use of an image guided system. Service comment (Unsp spec) [Interp] . . [facility] Work Phone: Liquid-based cerv Pap + CT/G C by HARPER w reflex to high-risk HPV for ASCUSon 09-03-2022 Cytology report Cyto stain.thin prep Doc (Cvx/Vag) Comment . [facility] Work Phone: Comment on above: Criteria not met, HP V Genotype not performed.Performed at: [facility] [id number] [facility] [address], [place], [place] [id number] Director: Carol Martinez MD, Phone: [phone] at: [place] - [facility] [id number] Director: Patricia Corona MD, Phone: [phone] at: =G - [facility] [address] [id number] Director: Patricia Corona MD, Phone: [phone] No Panel Informationon 09-03 Pap Smear QC Review Comment . [facility] Work Phone: Comment on above: Oswald Greenfield, Cyto technologist (ASCP) Pathology report final diagnosis Narrative Comment . [facility] Work Phone: Comment on above: NEGATIVE FOR INTRAEP ITHELIAL LESION OR MALIGNANCY.THIS SPECIMEN WAS RESCREENED PART OF OUR [employer]NA[employer] PROGRAM. Basophil percentageon 2021 Chloride [Moles/Vol] 108 mmol/L 98-107 [facility] Work Phone: Glucose [Mass/Vol] 163 mg/dL 74-[address] [facility] Work Phone: Comment on above: Fasting Glucose resu lt greater than or equal to 126 mg/dL suggests DIABETES MELLITUS per A.D.A. criteria. Potassium [Moles/Vol] 4.0 mmol/L 3.5-5.1 [facility] Work Phone: Sodium [Moles/Vol] 140 mmol/L 136-[address] [facility] Work Phone: WBC (Bld) [#/Vol] 7.6 10*3/uL 4.4-11.[address] [facility] Work Phone: Blood erythrocytes count (nu mber/volume)on 08-17-2022 RBC (Bld) [#/Vol] 4.57 10*6/uL 4.2-5.4 [facility]: Blood hemoglobin measurement (mass/volume)on 08-17-2022 Hemoglobin (Bld) [Mass/Vol] 13.4 g/dL 12.0-15.0 [facility] Work Phone: Blood platelet mean volumeon 08-17-2022 Platelet mean volume (Bld) [Entitic vol] 10.2 fL 6.2-12.0 [facility] Work Phone: Determination of erythrocyte mean corpuscular volume (MCV)on 08-17-2022 MCV (RBC) [Entitic vol] 88.8 fL 81-99 [facility] Work Phone: Hematocrit Auto (Bld) [Volum e fraction]on 08-17-2022 Hematocrit (Bld) [Volume fraction] 40.6 % 37-47 [facility] Work Phone: Laboratory - Chemistry and C hemistry - challengeon 08-17-2022 CO2 [Moles/Vol] 31.0 mmol/L 21.0-32.0 [facility] Work Phone: Urea nitrogen/Creatinine [Mass ratio] 18.6 mg/mg 10-20 [facility] Work Phone: Laboratory - Hematology and Cell countson 08-17-2022 Erythrocyte distribution width (RBC) [Entitic vol] 42.0 fL 35.1-43.9 [facility] Work Phone: Erythrocyte distribution width (RBC) [Ratio] 12.9 % 11.6-14.6 [facility] Work Phone: MCH (RBC) [Entitic mass] 29.3 pg 27.0-32.0 [facility] Work Phone: MCHC Auto (RBC) [Mass/Vol]on 08-17-2022 MCHC (RBC) [Mass/Vol] 33.0 g/dL 32-36 [facility] Work Phone: No Panel Informationon 08-17 Estimated GFR (MDRD) Amer 95 mL/min >60 [facility] Work Phone: Comment on above: GFR Calc Estimated GFR (MDRD) Non-Af Amer 79 mL/min >60 [facility] Work Phone: Comment on above: Non- GFR Calc Platelets bldon 08-17-2022 Platelets (Bld) [#/Vol] 251 10*3/uL 150-450 [facility] Work Phone: Serum or plasma calcium gabe urement (mass/volume)on 08-17-2022 Calcium [Mass/Vol] 8.7 mg/dL 8.5-10.[address] [facility] Work Phone: Serum or plasma creatinine m easurement (mass/volume)on 08-17-2022 Creatinine [Mass/Vol] 0.81 mg/dL 0.55-1.02 [facility] Work Phone: Comment on above: The validity of the calculated GFR & GFRAA in patients over 70 years has not been determined. Clinical correlation is essential. Serum or plasma urea nitroge n measurement (mass/volume)on 08-17-2022 Urea nitrogen [Mass/Vol] 15 mg/dL 7-18 [facility] Work Phone: Thin prep Papanicolaou smear with manual screeningon 08-17-2022 Thin prep Papanicolaou smear with manual screening 1 5-15 [facility] Work Phone: Absolute lymphocyte counton 02-24-2022 Lymphocytes Auto (Unsp spec) [#/Vol] 1.81 10*3/uL 0.83-4.51 [facility] Work Phone: Basophil percentageon 2021 Basophils/100 WBC (Bld) 0.3 % 0-1 [facility] Work Phone: Chloride [Moles/Vol] 106 mmol/L 98-107 [facility] Work Phone: Eosinophils/100 WBC (Bld) 1.3 % 0-5 [facility] Work Phone: Glucose [Mass/Vol] 112 mg/dL 74-[address] [facility] Work Phone: Comment on above: Fasting Glucose resu lt from 100 to 125 mg/dL suggests IMPAIRED HOMEOSTASIS per A.D.A. criteria. Neutrophils (Bld) [#/Vol] 1.5 10*3/uL 2.0-7.7 [facility] Work Phone: Neutrophils/100 WBC (Bld) 39.9 % 47-70 [facility] Work Phone: Potassium [Moles/Vol] 3.8 mmol/L 3.5-5.1 [facility] Work Phone: Comment on above: Moderate Hemolysis, Result may be falsely increased. Sodium [Moles/Vol] 140 mmol/L 136-[address] [facility] Work Phone: WBC (Bld) [#/Vol] 3.8 10*3/uL 4.4-11.[address] [facility] Work Phone: Blood erythrocytes count (nu mber/volume)on 02-24-2022 RBC (Bld) [#/Vol] 4.83 10*6/uL 4.2-5.4 [facility] Work Phone: Blood hemoglobin measurement (mass/volume)on 02-24-2022 Hemoglobin (Bld) [Mass/Vol] 14.2 g/dL 12.0-15.0 [facility] Work Phone: Blood lymphocytes/100 leukoc yteson 02-24-2022 Lymphocytes/100 WBC (Bld) 48.3 % 19-41 [facility] Work Phone: Blood monocytes/100 leukocyt eson 02-24-2022 Monocytes/100 WBC (Bld) 9.9 % 0-10 [facility] Work Phone: Blood platelet mean volumeon 02-24-2022 Platelet mean volume (Bld) [Entitic vol] 10.0 fL 6.2-12.0 [facility] Work Phone: Determination of erythrocyte mean corpuscular volume (MCV)on 02-24-2022 MCV (RBC) [Entitic vol] 86.3 fL 81-99 [facility] Work Phone: Hematocrit Auto (Bld) [Volum e fraction]on 02-24-2022 Hematocrit (Bld) [Volume fraction] 41.7 % 37-47 [facility] Work Phone: Laboratory - Chemistry and C hemistry - challengeon 02-24-2022 CO2 [Moles/Vol] 29.0 mmol/L 21.0-32.0 [facility] Work Phone: Urea nitrogen/Creatinine [Mass ratio] 12.4 mg/mg 10-20 [facility] Work Phone: Laboratory - Hematology and Cell countson 02-24-2022 Erythrocyte distribution width (RBC) [Entitic vol] 39.5 fL 35.1-43.9 [facility] Work Phone: Erythrocyte distribution width (RBC) [Ratio] 12.3 % 11.6-14.6 [facility] Work Phone: Immature granulocytes/100 WBC (Bld) 0.300 % 0.0-0.9 [facility] Work Phone: Comment on above: IG% - Immature Granu locytes (promyelocytes, myelocytes and metamyelocytes) > 1% indicates that a LEFT SHIFT is Present. MCH (RBC) [Entitic mass] 29.4 pg 27.0-32.0 [facility] Work Phone: Nucleated RBC/100 WBC (Bld) [Ratio] 0 % 0-5 [facility] Work Phone: MCHC Auto (RBC) [Mass/Vol]on 02-24-2022 MCHC (RBC) [Mass/Vol] 34.1 g/dL 32-36 [facility] Work Phone: No Panel Informationon 02-24 D-Dimer Quantitative (PE/DVT) 0.27 FEU/ug/m 0.27-0.49 [facility] Work Phone: Comment on above: NORMAL D-Dimer level (<0.50) indicates no DVT or PE. Estimated Creatinine Clearance Calc 149.75 ml/min [facility] Work Phone: Estimated GFR (MDRD) Amer 144 mL/min >60 [facility] Work Phone: Comment on above: GFR Calc Estimated GFR (MDRD) Non-Af Amer 119 mL/min >60 [facility] Work Phone: Comment on above: Non- GFR Calc Platelets bldon 02-24-2022 Platelets (Bld) [#/Vol] 206 10*3/uL 150-450 [facility] Work Phone: Serum or plasma calcium gabe urement (mass/volume)on 02-24-2022 Calcium [Mass/Vol] 8.6 mg/dL 8.5-10.[address] [facility] Work Phone: Serum or plasma creatinine m easurement (mass/volume)on 02-24-2022 Creatinine [Mass/Vol] 0.56 mg/dL 0.55-1.02 [facility] Work Phone: Comment on above: The validity of the calculated GFR & GFRAA in patients over 70 years has not been determined. Clinical correlation is essential. Serum or plasma urea nitroge n measurement (mass/volume)on 02-24-2022 Urea nitrogen [Mass/Vol] 7 mg/dL 7-18 [facility] Work Phone: Thin prep Papanicolaou smear with manual screeningon 02-24-2022 Thin prep Papanicolaou smear with manual screening 5 5-15 [facility] Work Phone: Vital Signs Date Time Vital Sign Value Performing Clinician Facility 03-07-2025 10:39-0500 Body temperature 98.1 [degF] Prince Serra [employer] Work Phone: [facility] 11-09-2024 10:39-0500 Body weight 85.2 kg Prince Serra [employer] Work Phone: [facility] 11-09-2024 10:39-0500 Diastolic blood pressure 83 mm[Hg] Prince Serra [employer] Work Phone: [facility] 11-09-2024 10:39-0500 Heart rate 75 /min Prince Serra [employer] Work Phone: [facility] 11-09-2024 10:39-0500 Respiratory rate 18 /min Prince Serra [employer] Work Phone: [facility] 11-09-2024 10:39-0500 SaO2% (BldA) [Mass fraction] 100 % Prince Serra [employer]TENA[employer] Work Phone: [facility] 11-09-2024 10:39-0500 Systolic blood pressure 156 mm[Hg] Prince Serra [employer]DIRECT[employer]INTENA[employer]CE Work Phone: [facility] 02-16-2024 16:50-0400 Body temperature 97.39 [degF] Prince Serra [employer]DIRECT[employer]TENA[employer] Work Phone: [facility] 02-16-2024 16:50-0400 Body weight 85 kg Prince Serra [employer]DIRECT[employer]TENA[employer] Work Phone: [facility] 02-16-2024 16:50-0400 Diastolic blood pressure 83 mm[Hg] Prince Serra [employer]DIRECT[employer]TENANCE Work Phone: [facility] 02-16-2024 16:50-0400 Heart rate 90 /min Prince Serra [employer]DIRECT[employer]TENA[employer] Work Phone: [facility] 02-16-2024 16:50-0400 Respiratory rate 20 /min Prince Serra [employer]DIRECT[employer]TENANCE Work Phone: [facility] 02-16-2024 16:50-0400 SaO2% (BldA) [Mass fraction] 97 % Prince Serra [employer]TE[employer] Work Phone: [facility] 02-16-2024 16:50-0400 Systolic blood pressure 142 mm[Hg] Prince Serra [employer]TENANCE Work Phone: [facility] 01-09-2024 07:10-0400 Body temperature 97.59 [degF] Kyler Pendlebury [employer]DIRECTOR [employer] MAINTENANCE Work Phone: [facility] 01-09-2024 07:10-0400 Body weight 85 [facility] [employer]DIRECT[employer]TENA[employer]CE Work Phone: [facility] 01-09-2024 07:10-0400 Diastolic blood pressure 84 mm[Hg] Kyler Pendlebury [employer]DIRECT[employer]TENAN[employer] Work Phone: [facility] 01-09-2024 07:10-0400 Heart rate 89 /min Kyler Pendlebury [employer]DIRECT[employer]TENANCE Work Phone: [facility] 01-09-2024 07:10-0400 Respiratory rate 18 /min [facility] [employer]TENA[employer] Work Phone: [facility] 01-09-2024 07:10-0400 SaO2% (BldA) [Mass fraction] 98 % [facility] [employer]DIRECT[employer] MAINTENANCE Work Phone: [facility] 01-09-2024 07:10-0400 Systolic blood pressure 142 mm[Hg] Kyler Pendlebury [employer]DIRECT[employer] MA[employer]TENANCE Work Phone: [facility] 12-12-2023 13:45-0400 Body temperature 96.7 [degF] [facility] 12-12-2023 13:45-0400 Diastolic blood pressure 84 mm[Hg] [facility] 12-12-2023 13:45-0400 Heart rate 75 /min [facility] 12-12-2023 13:45-0400 Respiratory rate 18 /min [facility] 12-12-2023 13:45-0400 SaO2% (BldA) [Mass fraction] 99 % [facility] 12-12-2023 13:45-0400 Systolic blood pressure 160 mm[Hg] [facility] 12-12-2023 11:29-0400 Body height 149.86 cm [facility] 12-12-2023 11:29-0400 Body mass index (BMI) [Ratio] 38.5 kg/m2 [facility] 12-12-2023 11:29-0400 Body weight 86.63 kg [facility] 10-13-2023 07:26-0500 Body temperature 99.1 [degF] [facility] [employer]DIRECT[employer]TENAN[employer] Work Phone: [facility] 10-13-2023 07:26-0500 Body weight 85.91 [facility] [employer]TENA[employer] Work Phone: [facility] 10-13-2023 07:26-0500 Diastolic blood pressure 72 mm[Hg] Kyler Shoaib [employer]DIRECT[employer] MAINTENANCE Work Phone: [facility] 10-13-2023 07:26-0500 Heart rate 90 /min Kyler Pendadele [employer]DIRECT[employer] MAINTENANCE Work Phone: [facility] 10-13-2023 07:26-0500 Respiratory rate 21 /min [facility] [employer]TE[employer] Work Phone: [facility] 10-13-2023 07:26-0500 SaO2% (BldA) [Mass fraction] 98 % Kyler Cramer [employer]DIRECT[employer] MAINTENANCE Work Phone: [facility] 10-13-2023 07:26-0500 Systolic blood pressure 110 mm[Hg] Kyler Humphreyleandre [employer]TENAN[employer] Work Phone: [facility] 02-24-2022 15:00-0400 Heart rate 70 /min [facility] Work Phone: 02-24-2022 15:00-0400 Respiratory rate 16 /min [facility] Work Phone: 02-24-2022 15:00-0400 SaO2% (BldA) [Mass fraction] 99 % [facility] Work Phone: 02-24-2022 12:45-0400 Body height 149.86 cm [facility] Work Phone: 02-24-2022 12:45-0400 Body mass index (BMI) [Ratio] 36.3 kg/m2 [facility] Work Phone: 02-24-2022 12:45-0400 Body temperature 97.2 [degF] [facility] Work Phone: 02-24-2022 12:45-0400 Body weight 81.64 kg [facility] Work Phone: 02-24-2022 12:45-0400 Diastolic blood pressure 79 mm[Hg] [facility] Work Phone: 02-24-2022 12:45-0400 Systolic blood pressure 143 mm[Hg] [facility] Work Phone: Encounters Encounter Date Encounter Type Care Provider Facility Start: 04-22-2025 ambulatory No Primary Car e Physician Facility:[facility] Start: 03-06-2025 End: 03-06-2025 ambulatory PRINCE SERRA Facility:[facility] Start: 03-06-2025 Encounter for other preprocedural examination PRINCE SERRA [facility] Start: 03-05-2025 ambulatory Leon Ward Facility: [facility] Start: 03-04-2025 Encounter for other preprocedural examination Leon Ward [facility] Start: 11-09-2024 End: 11-09-2024 Subsequent hospital visit by physician Xr [facility] Work Phone: Radiology Comment on above: Rib pain on right si de [R07.81] Start: 11-09-2024 End: 11-09-2024 ambulatory PRINCE SERRA Facility:[facility] Start: 11-09-2024 End: 11-09-2024 Patient encounter procedure Prince Serra [employer]TENAN[employer] Work Phone: [facility] Care Comment on above: Rib pain on right si de (Primary Dx); Muscle strain of chest wall, initial encounter Start: 02-17-2024 Telephone encounter Zachery Mccracken MD Work Phone: [facility] Comment on above: Results (BV+, Candid a+) Start: 02-16-2024 End: 02-16-2024 Patient encounter procedure Prince Serra [employer]INTENANCE Work Phone: [facility] Comment on above: Vaginal itching (Susan victoriano Dx); Vaginal burning Start: 01-09-2024 End: 01-09-2024 Office outpatient visit 25 minutes Kyler Cramer [employer]DIRECT[employer] MAINTENANCE Work Phone: [facility] Comment on above: Sinobronchitis (Prim alley Dx) Start: 12-15-2023 End: 12-15-[address] [facility] Work Phone: Start: 12-15-2023 End: 12-15-[address] [facility] Work Phone: Start: 12-12-2023 End: 12-12-2023 Emergency department patient visit [facility] Work Phone: Start: 12-08-2023 Registered Recurring [facility] Work Phone: Start: 10-13-2023 End: 10-13-2023 Office outpatient new 30 minutes Kyler Cramer [employer]DIRECT[employer]TENA[employer] Work Phone: [facility] Comment on above: Viral illness (Prima ry Dx) Start: 09-09-2022 Registered Recurring [facility] Start: 09-03-2022 End: 09-03-[address] [facility] Work Phone: Start: 09-03-2022 End: 09-03-[address] [facility]Labor[facility], Specimen Start: 08-17-2022 End: 08-17-[address] [facility] Work Phone: Start: 08-17-2022 End: 08-17-[address] [facility] Start: 02-24-2022 End: 02-24-2022 Emergency department patient visit [facility] Procedures Date Procedure Procedure Detail Performing Clinician Start: 11-09-2024 Radex ribs uni w/posteroant ch minimum 3 views Prince Serra APRN.CNP Work Phone: Start: 12-12-2023 Plain chest X-ray Start: 02-24-2022 Plain chest X-ray History of cholecystectomy History of cholecystectomy Plan of Treatment Date Care Activity Detail Author Start: 05-06-2024 Covid-19 Vaccine ( season) Covid-19 Vaccine () [facility] Start: 05-06-2024 Influenza vaccination [facility] Start: 12-12-2023 [facility] Start: 12-12-2023 [facility] Start: 10-13-2023 End: 10-27-2023 Influenza virus A and B RNA and SARS-CoV-2 (COVID-19) N gene panel - Respiratory specimen by HARPER with probe detection COVID & INFLUENZA A/B NAAT, ROUTINE Microbiology Routine Viral illness Expected: 10/13/2023, Expires: 10/27/2023 [facility] Work Phone: Comment on above: Expected: 10/13/2023 , Expires: 10/27/2023 Start: 09-05-2023 Behavioral Health Screening Behavioral Health Screening [facility] Start: 09-05-2023 Depression Assessment Depression Ass essment [facility] Start: 05-06-2023 Covid-19 Vaccine ( season) Covid-19 Vaccine ( season) [facility] Start: 05-06-2023 Influenza vaccination Influenza Vacc ine (#1) [facility] Start: 02-24-2022 [facility] Work Phone: Start: 2018 Pneumococcal Vaccine : 50+ (1 of 1 - PCV) Pneumococcal Vaccine: 50+ (1 of 1 - PCV) [facility] Start: 2018 Shingrix Vaccine (1 of 2) Shingrix Vaccine (1 of 2) [facility] Start: 2013 Diabetes Screening Diabetes Screenin g [facility] Start: 2013 Lipid panel Lipid Screening [facility] Start: 2013 Screening for malign ant neoplasm of colon [facility] Start: 2008 Screening for malign ant neoplasm of breast Mammogram Screening [facility] Start: 1998 Screening for malign ant neoplasm of cervix HPV Testing [facility] Start: 1989 Screening for malign ant neoplasm of cervix [facility] Start: 1987 Hepatitis B Vaccine (1 of 3 - 19+ 3-dose series) Hepatitis B Vaccine (1 of 3 - 19+ 3-dose series) [facility] Start: 1987 Urine microalbumin profile DTaP,Tdap,Td Vaccine (1 - Tdap) [facility] Start: 1986 Anxiety Screening Anxiety Screening [facility] Start: 1986 Depression Screening Depression Scre ening [facility] Start: 1986 Hepatitis C screening Hepatitis C Sc reening [facility] Start: 1986 HIV screening HIV Screening [facility] Start: 1968 Covid-19 Vaccine (#1) Covid-19 Vacci ne (#1) [facility] Start: 1968 Hepatitis B Vaccine (1 of 3 - 3-dose series) Hepatitis B Vaccine (1 of 3 - 3-dose series) [facility] BACTERIAL VAGINOSIS NAAT BACTERIAL VAGINOSIS NAAT Lab Routine Vaginal itching Ordered: 02/16/2024 [facility] Comment on above: Ordered: 02/16/2024 JENNA/TRICHOMONAS NAAT JENNA/TRICHOMONAS NAAT Lab Routine Vaginal itching Ordered: 02/16/2024 [facility] Work Phone: Comment on above: Ordered: 02/16/2024 Chlamydia trachomatis+Neisseria gonorrhoeae DNA [Presence] in Unspecified specimen by HARPER with probe detection GONORRHEA/CHLAMYDIA NAAT Lab Routine Vaginal itching Ordered: 02/16/2024 [facility] Comment on above: Ordered: 02/16/2024 Patient Education [facility] Work Phone: Patient referral [place] Work Phone: Payers Date Payer Category Payer Self-pay [id number] 2023 [employer] BLUE CARD PPO OOS [id number] 2023 Unknown [employer] BLUE CARD PPO OOS [id number] 2023-Present [phone] [address] [place] [address] PPO [id number] 2023 Unknown [id number] Private Health Insurance [facility] [id number] Unknown [id number] Unknown [id number] Social History Date Type Detail Facility Start: 02-24-2022 End: 12-12-2023 Tobacco smoking status NHIS Unknown if ever smoked [facility] Start: 12-30-2020 Non-smoker [facility] Start: 1970 Sex Assigned At Female [facility] Start: 10-13-2023 Tobacco smoking stat us NHIS Ex-smoker [facility] History of tobacco use Current smoker [facility] History of tobacco use Cigarette Smoker [facility] History of tobacco use Passive smoker [facility] Start: 10-13-2023 Tobacco use and exposure Smokeless tobacco non-user [facility] Start: 10-13-2023 End: 11-09-2024 History of Social function [facility] Start: 10-13-2023 End: 11-09-2024 Tobacco use panel [facility] Start: 1970 Sex Assigned At Not on file [facility] Mental Status Date Assessment Result Facility 12-12-2023 Cognitive function Level Of Cons ciousness Awake;Alert;Appropriate;Follow s Commands [facility] Work Phone: 02-24-2022 Cognitive function Level Of Cons ciousness Awake;Alert;Appropriate;Follow s Commands [facility] Work Phone: Clinical Notes 09-03-2022 to 11-09-2024 Patient InstructionsAcacia Menezes RT(R) - 11/09/2024 10:50 AM Prince Saldaña APRN.DIRECTOR FACILITIES MAINTENANCE - 11/09/2024 10:43 AM ESTTelephone Encounter - Nathalia Bonilla LPN - 02/17/2024 9:29 AM EDT Note Date & Type Note Facility 11-09-2024 Instructions Prince Serra APRN.DIRECTOR FACILITIES MAINTENANCE - 11/09/2024 11:13 AM EST R.I.C.E. The general care of your injury includes the following: Resting, Icing, Compressing and Elevating the injured area. Remember this as RICE. REST: Limit the use of the injured body part. ICE: By applying ice to the affected area, swelling and pain can be reduced. Place some ice cubes in a re-sealable (Ziploc) bag and add some water. Put a thin washcloth between the bag and your skin. Apply the ice bag to the area for at least 20 minutes. Do this at least 4 times per day. Using the ice for longer times and more frequently is OK. NEVER APPLY ICE DIRECTLY TO THE SKIN. COMPRESS: Compression means to apply pressure around the injured area such as with a splint, cast or an abdirahman bandage. Compression decreases swelling and improves comfort. Compression should be tight enough to relieve swelling but not so tight as to decrease circulation. Increasing pain, numbness, tingling, or change in skin color, are all signs of decreased circulation. ELEVATE: Elevate the injured part. For example, elevate your foot by placing it on a chair while sitting, or propping it up on pillows when lying down. documented in this encounter [facility] 11-09-2024 History of Presen t illness Narrative Radiology Service Progress Note PATIENT NAME: Saima Kerr DATE OF SERVICE: November 09, 2024 TIME: 10:49 AM PATIENT IDENTITY VERIFICATION COMPLETED USING TWO (2) IDENTIFIERS: Name and Date of confirmed by patient verbally. FALL SCREENING: Has the patient had 2 falls in the last year or 1 fall with injury or currently using an Ambulatory Assistive Device (Walker, Cane, Wheelchair, Crutches, etc.)? No PATIENT GENDER DATA: Assigned female at . status: : No status: NO. PATIENT RELEVANT IMPLANT DATA REVIEWED: Not Applicable PATIENT PRESENTS WITH AN IMPLANTABLE OR ATTACHED TAG STRINGER: No RADIOLOGY DEPARTMENT: General X-ray: Exam(s) Completed: Rib X-Ray: Right PERIPHERAL IV DATA: Not applicable SIGNED BY: OMKAR Parada) November 09, 2024 10:49 AM documented in this encounter [facility] 11-09-2024 Note HNO ID: [id number] Author: ACACIA MENEZES RT(R) Service: Radiology Author Type: Technologist Type: Progress Notes Filed: 11/09/2024 10:57 Note Text: Radiology Service Progress Note PATIENT NAME: Saima Kerr DATE OF SERVICE: November 09, 2024 TIME: 10:49 AM PATIENT IDENTITY VERIFICATION COMPLETED USING TWO (2) IDENTIFIERS: Name and Date of confirmed by patient verbally. FALL SCREENING: Has the patient had 2 falls in the last year or 1 fall with injury or currently using an Ambulatory Assistive Device (Walker, Cane, Wheelchair, Crutches, etc.)? No PATIENT GENDER DATA: Assigned female at . status: : No status: NO. PATIENT RELEVANT IMPLANT DATA REVIEWED: Not Applicable PATIENT PRESENTS WITH AN IMPLANTABLE OR ATTACHED TAG STRINGER: No RADIOLOGY DEPARTMENT: General X-ray: Exam(s) Completed: Rib X-Ray: Right PERIPHERAL IV DATA: Not applicable SIGNED BY: RT Tal(R) November 09, 2024 10:49 AM [facility] 11-09-2024 Note HNO ID: [id number] Author: PRINCE SERRA APRN.DIRECTOR FACILITIES MAINTENANCE Service: ? Author Type: Nurse Practitioner Type: Progress Notes Filed: 11/09/2024 12:31 Note Text: This note was created using JoKnoriter. Subjective Saima Kerr is a 54 year old female. 54 year old female with no PMH presents for rib pain Acute onset 2 days ago Right sided ribs Endorses she was sneezing and [place] a sharp pain in right ribs at time of sneeze Has continued +pain with touching +pain with moving +pain with deep breathing Denies skin rash or lesions. Denies CP Denies dyspnea Denies CP Denies tobacco usage The history is provided by the patient. No senior staff specialized employment was used. Chest Pain This is a new problem. The current episode started 2 days ago. The problem occurs constantly. The problem has been gradually worsening. The pain is associated with coughing and raising an arm (sneezing). The pain is present in the lateral region. The pain is at a severity of 7/10. The pain is moderate. The quality of the pain is described as sharp. The pain does not radiate. The symptoms are aggravated by certain positions, deep breathing and exertion. Pertinent negatives include no abdominal pain, no back pain, no claudication, no cough, no diaphoresis, no dizziness, no exertional chest pressure, no headaches, no hemoptysis, no irregular heartbeat, no leg pain, no lower extremity edema, no malaise/fatigue, no nausea, no near-syncope, no numbness, no orthopnea, no shortness of breath, no sputum production, no syncope, no vomiting and no weakness. She has tried rest for the symptoms. The treatment provided no relief. There are no known risk factors. No past medical history on file. No past surgical history on file. ALLERGIES Diphenhydramine, Meperidine, and Tetracycline MEDICATIONS cyclobenzaprine (FLEXERIL) 10 mg tablet Take 1 tablet by mouth three times a day as needed for muscle spasm. predniSONE (DELTASONE) 10 mg tablet Take 4 tabs daily for 3 days, then 2 tabs daily for 3 days, then 1 tab daily for 3 days with food. No family history on file. Social History Tobacco Use Smoking status: Former Types: Cigarettes Passive exposure: Past Smokeless tobacco: Never Review of Systems Constitutional: Negative for diaphoresis and malaise/fatigue. Respiratory: Negative for cough, hemoptysis, sputum production and shortness of breath. Cardiovascular: Positive for chest pain. Negative for orthopnea, claudication, syncope and near-syncope. Gastrointestinal: Negative for abdominal pain, nausea and vomiting. Musculoskeletal: Negative for back pain. Neurological: Negative for dizziness, weakness, numbness and headaches. Objective BP 156/83 Pulse 75 Temp 36.7 ?C (98.1 ?F) Resp 18 Wt 85.2 kg (187 lb 13.3 oz) SpO2 100% Physical Exam Vitals and nursing note reviewed. Constitutional: General: She is not in acute distress. Appearance: Normal appearance. She is normal weight. She is not ill-appearing, toxic-appearing or diaphoretic. HENT: Head: Normocephalic and atraumatic. Right Ear: Ear canal and external ear normal. Left Ear: Ear canal and external ear normal. Nose: Nose normal. No congestion or rhinorrhea. Mouth/Throat: Mouth: Mucous membranes are moist. Pharynx: No oropharyngeal exudate or posterior oropharyngeal erythema. Eyes: General: Right eye: No discharge. Left eye: No discharge. Extraocular Movements: Extraocular movements intact. Conjunctiva/sclera: Conjunctivae normal. Pupils: Pupils are equal, round, and reactive to light. Cardiovascular: Rate and Rhythm: Normal rate and regular rhythm. Pulses: Normal pulses. Heart sounds: Normal heart sounds. No murmur heard. No friction rub. Pulmonary: Effort: Pulmonary effort is normal. No respiratory distress. Breath sounds: Normal breath sounds. No stridor. No wheezing, rhonchi or rales. Comments: Right mid axillary and diffuse TTP rib 5, 6, and 7 No flail chest Chest rises and falls equally Lungs CTA No ecchymosis No retractions Chest: Chest wall: Tenderness present. Abdominal: General: Abdomen is flat. There is no distension. Palpations: Abdomen is soft. There is no mass. Tenderness: There is no abdominal tenderness. There is no right CVA tenderness, left CVA tenderness, guarding or rebound. Hernia: No hernia is present. Musculoskeletal: General: No swelling, tenderness, deformity or signs of injury. Normal range of motion. Cervical back: Normal range of motion and neck supple. No rigidity. Right lower leg: No edema. Left lower leg: No edema. Lymphadenopathy: Cervical: No cervical adenopathy. Skin: General: Skin is warm and dry. Coloration: Skin is not jaundiced or pale. Findings: No bruising, erythema, lesion or rash. Neurological: General: No focal deficit present. Mental Status: She is alert and oriented to person, place, and time. Cranial Nerves: No cranial ner (more content not included)... [facility] 11-09-2024 History of Presen t illness Narrative This note was created using JoKnoriter. Subjective Saima Kerr is a 54 year old female. 54 year old female with no PMH presents for rib pain Acute onset 2 days ago Right sided ribs Endorses she was sneezing and [place] a sharp pain in right ribs at time of sneeze Has continued +pain with touching +pain with moving +pain with deep breathing Denies skin rash or lesions. Denies CP Denies dyspnea Denies CP Denies tobacco usage The history is provided by the patient. No senior staff specialized employment was used. Chest Pain This is a new problem. The current episode started 2 days ago. The problem occurs constantly. The problem has been gradually worsening. The pain is associated with coughing and raising an arm (sneezing). The pain is present in the lateral region. The pain is at a severity of 7/10. The pain is moderate. The quality of the pain is described as sharp. The pain does not radiate. The symptoms are aggravated by certain positions, deep breathing and exertion. Pertinent negatives include no abdominal pain, no back pain, no claudication, no cough, no diaphoresis, no dizziness, no exertional chest pressure, no headaches, no hemoptysis, no irregular heartbeat, no leg pain, no lower extremity edema, no malaise/fatigue, no nausea, no near-syncope, no numbness, no orthopnea, no shortness of breath, no sputum production, no syncope, no vomiting and no weakness. She has tried rest for the symptoms. The treatment provided no relief. There are no known risk factors. No past medical history on file. No past surgical history on file. ALLERGIES Diphenhydramine, Meperidine, and Tetracycline MEDICATIONS cyclobenzaprine (FLEXERIL) 10 mg tablet Take 1 tablet by mouth three times a day as needed for muscle spasm. predniSONE (DELTASONE) 10 mg tablet Take 4 tabs daily for 3 days, then 2 tabs daily for 3 days, then 1 tab daily for 3 days with food. No family history on file. Social History Tobacco Use Smoking status: Former Types: Cigarettes Passive exposure: Past Smokeless tobacco: Never Review of Systems Constitutional: Negative for diaphoresis and malaise/fatigue. Respiratory: Negative for cough, hemoptysis, sputum production and shortness of breath. Cardiovascular: Positive for chest pain. Negative for orthopnea, claudication, syncope and near-syncope. Gastrointestinal: Negative for abdominal pain, nausea and vomiting. Musculoskeletal: Negative for back pain. Neurological: Negative for dizziness, weakness, numbness and headaches. Objective BP 156/83 Pulse 75 Temp 36.7 C (98.1 F) Resp 18 Wt 85.2 kg (187 lb 13.3 oz) SpO2 100% Physical Exam Vitals and nursing note reviewed. Constitutional: General: She is not in acute distress. Appearance: Normal appearance. She is normal weight. She is not ill-appearing, toxic-appearing or diaphoretic. HENT: Head: Normocephalic and atraumatic. Right Ear: Ear canal and external ear normal. Left Ear: Ear canal and external ear normal. Nose: Nose normal. No congestion or rhinorrhea. Mouth/Throat: Mouth: Mucous membranes are moist. Pharynx: No oropharyngeal exudate or posterior oropharyngeal erythema. Eyes: General: Right eye: No discharge. Left eye: No discharge. Extraocular Movements: Extraocular movements intact. Conjunctiva/sclera: Conjunctivae normal. Pupils: Pupils are equal, round, and reactive to light. Cardiovascular: Rate and Rhythm: Normal rate and regular rhythm. Pulses: Normal pulses. Heart sounds: Normal heart sounds. No murmur heard. No friction rub. Pulmonary: Effort: Pulmonary effort is normal. No respiratory distress. Breath sounds: Normal breath sounds. No stridor. No wheezing, rhonchi or rales. Comments: Right mid axillary and diffuse TTP rib 5, 6, and 7 No flail chest Chest rises and falls equally Lungs CTA No ecchymosis No retractions Chest: Chest wall: Tenderness present. Abdominal: General: Abdomen is flat. There is no distension. Palpations: Abdomen is soft. There is no mass. Tenderness: There is no abdominal tenderness. There is no right CVA tenderness, left CVA tenderness, guarding or rebound. Hernia: No hernia is present. Musculoskeletal: General: No swelling, tenderness, deformity or signs of injury. Normal range of motion. Cervical back: Normal range of motion and neck supple. No rigidity. Right lower leg: No edema. Left lower leg: No edema. Lymphadenopathy: Cervical: No cervical adenopathy. Skin: General: Skin is warm and dry. Coloration: Skin is not jaundiced or pale. Findings: No bruising, erythema, lesion or rash. Neurological: General: No focal deficit present. Mental Status: She is alert and oriented to person, place, and time. Cranial Nerves: No cranial nerve deficit. Sensory: No sensory deficit. Motor: No weakness. Coordination: Coordination normal. Gait: Gait normal. Psychiatric: Mood and Affect: Mood normal. Behavior: Behavior normal. Thought Content: Thought content normal. Judgment: Judgment normal. Assessment and Plan ASSESSMENT/PLAN: 1. Rib pain on right side - ICD9: 786.50, ICD10: R07.81 (primary diagnosis) Atypical chest pain, symptoms are not consistent with cardiac ischemia due to pleuritic nature of pain, localization of the pain, and pain with sneezing possible etiology include Costochondritis/chest wall pain, musculoskeletal, Pneumonia, Pericarditis, Pleurisy, Bronchitis, and Anxiety - Chest X-ray today. My reading: normal, no signs of acute disease. Discussed my reading with patient. Radiologist report to follow. - Oxygen saturation 98% No red flags Hemodynamically stable - XR RIBS/CHEST 3V AP RIB/OBLS/CXR RIGHT-negative read per radiologist 2. Muscle strain of chest wall, initial encounter - ICD9: 848.8, ICD10: S29.011A RICE RX Flexeril RX Prednisone taper Discussed red flags Reasons to seek ED Prince Serra APRN.DIRECTOR FACILITIES MAINTENANCE documented in this encounter [facility] 02-17-2024 Telephone encounter Note Spoke with pt and information listed below given. Pt verbalizes understanding. Nathalia Bonilla LPN [facility] 02-17-2024 Telephone encounter Note Left message for patient to return call. Emily Fortune LPN [facility] 02-17-2024 Miscellaneous Notes Spoke with pt and information listed below given. Pt verbalizes understanding. Nathalia Bonilla LPN Left message for patient to return call. Emily Fortune LPN Vaginal swabs positive for yeast and overgrowth of normal bacteria. The diflucan sent at her visit should help treat the yeast. I have sent flagyl in to treat BV. Other testing was negative. documented in this encounter [facility] 02-17-2024 Telephone encounter Note Vaginal swabs positive for yeast and overgrowth of normal bacteria. The diflucan sent at her visit should help treat the yeast. I have sent flagyl in to treat BV. Other testing was negative. [facility] 02-16-2024 History of Presen t illness Narrative This note was created using NoteWriter. Subjective Saima Kerr is a 53 year old female. 53 year old female with no PMH presents for female complaints. Acute onset 4 days ago + vaginal redness +vaginal itching Feels very on fire down [place] Denies discharge Denies odor Denies vaginal bleeding Denies dysuria, urgency, frequency Denies hematuria Denies abdominal pain. Denies flank pain Denies N/V/D Endorses she is sexually active, but denies concerns for STI LMP-36 year old The history is provided by the patient. No senior staff specialized employment was used. Vaginal Problem This is a new problem. The current episode started in the past 7 days. The problem occurs constantly. The problem has been unchanged. Pertinent negatives include no abdominal pain, anorexia, arthralgias, change in bowel habit, chest pain, chills, congestion, coughing, diaphoresis, fatigue, fever, headaches, joint swelling, myalgias, nausea, neck pain, numbness, rash, sore throat, swollen glands, urinary symptoms, vertigo, visual change, vomiting or weakness. Nothing aggravates the symptoms. She has tried nothing for the symptoms. The treatment provided no relief. No past medical history on file. No past surgical history on file. ALLERGIES Diphenhydramine, Meperidine, and Tetracycline MEDICATIONS fluconazole (DIFLUCAN) 150 mg tablet Take 1 tablet by mouth once daily for 1 day. No family history on file. Social History Tobacco Use Smoking status: Former Types: Cigarettes Passive exposure: Past Smokeless tobacco: Never Review of Systems Constitutional: Negative for chills, diaphoresis, fatigue and fever. HENT: Negative for congestion and sore throat. Eyes: Negative for pain, discharge, redness and itching. Respiratory: Negative for apnea, cough, choking and chest tightness. Cardiovascular: Negative for chest pain, palpitations and leg swelling. Gastrointestinal: Negative for abdominal pain, anorexia, change in bowel habit, nausea and vomiting. Genitourinary: Negative for difficulty urinating, dysuria, frequency, genital sores, urgency and vaginal discharge. Vaginal itching/vaginal pain Musculoskeletal: Negative for arthralgias, joint swelling, myalgias and neck pain. Skin: Negative for color change, pallor and rash. Allergic/Immunologic: Negative for environmental allergies, food allergies and immunocompromised state. Neurological: Negative for dizziness, vertigo, facial asymmetry, weakness, numbness and headaches. Hematological: Negative for adenopathy. Does not bruise/bleed easily. Psychiatric/Behavioral: Negative for agitation and behavioral problems. Objective BP 142/83 Pulse 90 Temp 36.3 C (97.4 F) Resp 20 Wt 85 kg (187 lb 6.3 oz) SpO2 97% Physical Exam Vitals and nursing note reviewed. Constitutional: General: She is not in acute distress. Appearance: Normal appearance. She is not ill-appearing, toxic-appearing or diaphoretic. HENT: Head: Normocephalic and atraumatic. Right Ear: Ear canal and external ear normal. Left Ear: Ear canal and external ear normal. Nose: Nose normal. No congestion or rhinorrhea. Mouth/Throat: Mouth: Mucous membranes are moist. Pharynx: No oropharyngeal exudate or posterior oropharyngeal erythema. Eyes: General: Right eye: No discharge. Left eye: No discharge. Extraocular Movements: Extraocular movements intact. Conjunctiva/sclera: Conjunctivae normal. Pupils: Pupils are equal, round, and reactive to light. Cardiovascular: Rate and Rhythm: Normal rate and regular rhythm. Pulses: Normal pulses. Heart sounds: Normal heart sounds. No murmur heard. No friction rub. Pulmonary: Effort: Pulmonary effort is normal. No respiratory distress. Breath sounds: Normal breath sounds. No stridor. No wheezing, rhonchi or rales. Chest: Chest wall: No tenderness. Abdominal: General: Abdomen is flat. There is no distension. Palpations: Abdomen is soft. There is no mass. Tenderness: There is no abdominal tenderness. There is no right CVA tenderness, left CVA tenderness, guarding or rebound. Hernia: No hernia is present. Genitourinary: Vagina: Vaginal discharge present. Comments: Back Tufter present +vaginal wall erythema +white thick discharge noted. Unable to visualize cervical OS related to body habitus CX x 2 obtained Musculoskeletal: General: No swelling, tenderness, deformity or signs of injury. Normal range of motion. Cervical back: Normal range of motion and neck supple. No rigidity. Right lower leg: No edema. Left lower leg: No edema. Lymphadenopathy: Cervical: No cervical adenopathy. Skin: General: Skin is warm and dry. Capillary Refill: Capillary refill takes less than 2 seconds. Coloration: Skin is not jaundiced or pale. Findings: No bruising, erythema, lesion or rash. Neurological: General: No focal deficit present. Mental Status: She is alert and oriented to person, place, and time. Cranial Nerves: No cranial nerve deficit. Sensory: No sensory deficit. Motor: No weakness. Coordination: Coordination normal. Gait: Gait normal. Psychiatric: Mood and Affect: Mood normal. Behavior: Behavior normal. Thought Content: Thought content normal. Judgment: Judgment normal. Assessment and Plan ASSESSMENT/PLAN: 1. Vaginal itching - ICD9: 698.1, ICD10: N89.8 (primary diagnosis) X 4 days Exam reveals erythematous vaginal vault +white discharge Cx obtained Likely yeast, will cover with x 1 Diflucan Will await additional results to guide treatment Follow up with PCP and or [facility] [employer] for continued sx - JENNA/TRICHOMONAS NAAT - BACTERIAL VAGINOSIS NAAT - GONORRHEA/CHLAMYDIA NAAT 2. Vaginal burning - ICD9: 625.8, ICD10: N94.9 Prince Serra APRN.DIRECTOR FACILITIES MAINTENANCE documented in this encounter [facility] 01-09-2024 History of Presen t illness Narrative Subjective HPI Nontoxic-appearing female presents urgent care chief complaint cough sore throat headache body aches fatigue. Duration of symptoms 4 days. Associate symptoms listed above. Did have a fever 100.4 yesterday. States was around mother who is sick with similar signs symptoms. She did test negative for COVID-19 influenza RSV. Presents today for evaluation. Most bothersome symptom today is fatigue. Denies any productive cough chest pain shortness of breath pleuritic pain hemoptysis nausea vomiting abdominal pain change in bowel or bladder habits. Past medical history prescription medications allergies reviewed. .Patient presents with: Cough: Cough, fever, ST, sheehan and bodyaches x 4 days History reviewed. No pertinent past medical history. History reviewed. No pertinent surgical history. ALLERGIES Diphenhydramine, Meperidine, and Tetracycline MEDICATIONS No prescriptions on file. History reviewed. No pertinent family history. Social History Tobacco Use Smoking status: Former Types: Cigarettes Passive exposure: Past Smokeless tobacco: Never BP 142/84 Pulse 89 Temp 36.4 C (97.6 F) (Tympanic) Resp 18 Wt 85 kg (187 lb 6.3 oz) SpO2 98% Review of Systems Constitutional: Positive for chills, fever and malaise/fatigue. HENT: Positive for congestion, sinus pain and sore throat. Negative for ear discharge and ear pain. Eyes: Negative for blurred vision, pain, discharge and redness. Respiratory: Positive for cough. Negative for hemoptysis, sputum production, shortness of breath, wheezing and stridor. Cardiovascular: Negative for chest pain. Gastrointestinal: Negative for abdominal pain, diarrhea, nausea and vomiting. Musculoskeletal: Positive for myalgias. Skin: Negative for itching and rash. Neurological: Negative for dizziness and headaches. Objective Physical Exam Constitutional: General: She is not in acute distress. Appearance: She is not diaphoretic. HENT: Head: Normocephalic. Jaw: No trismus, tenderness, swelling or pain on movement. Right Ear: Tympanic membrane, ear canal and external ear normal. Left Ear: Tympanic membrane, ear canal and external ear normal. Nose: Congestion present. Mouth/Throat: Mouth: Mucous membranes are moist. Pharynx: Oropharynx is clear. Uvula midline. No pharyngeal swelling, oropharyngeal exudate, posterior oropharyngeal erythema or uvula swelling. Eyes: Conjunctiva/sclera: Conjunctivae normal. Pupils: Pupils are equal, round, and reactive to light. Cardiovascular: Rate and Rhythm: Normal rate and regular rhythm. Heart sounds: Normal heart sounds. Pulmonary: Effort: Pulmonary effort is normal. No tachypnea, accessory muscle usage or respiratory distress. Breath sounds: Normal breath sounds. No stridor. No wheezing, rhonchi or rales. Abdominal: General: There is no distension. Palpations: Abdomen is soft. Tenderness: There is no abdominal tenderness. There is no guarding or rebound. Musculoskeletal: Cervical back: Normal range of motion and neck supple. No edema, erythema, rigidity or tenderness. No pain with movement. Normal range of motion. Lymphadenopathy: Cervical: No cervical adenopathy. Skin: General: Skin is warm and dry. Neurological: Mental Status: She is alert and oriented to person, place, and time. ASSESSMENT/PLAN: 1. Sinobronchitis - ICD9: 473.9, 490, ICD10: J32.9, J40 Diagnosis sinobronchitis. Viral versus bacterial illness discussed with patient. Will use cough suppressant today. Safety net antibiotic sent to pharmacy. Patient was educated on supportive therapies. Patient will follow up with primary care provider as needed. Patient was instructed to immediately proceed to emergency room for any new, worsening, or symptoms lasting longer than anticipated. The patient's clinical presentation is otherwise unremarkable at this time. Based on exam and clinical finding, the patient is stable for discharge. Plan of care was discussed with patient. Patient verbalizes understanding and agrees to plan of care. This note was generated using [employer] software. It may contain errors in wording, punctuation, or spelling. Kyler Cramer APRN.ALEAH documented in this encounter [facility] 12-15-2023 Discharge summary Note Date/Time December 15, 2023 11:33am [facility] Occupational Therapy [facility] [address] [place] [address] / REHABILITATION SERVICES DISCHARGE SUMMARY MR#: [id number] Acct: [id number] Name: SAIMA KERR Rep #: [id number] : 1970 53 From: Yumiko PEREZ/José T Referring Dr.: NINI Muir Status: REG RCR Eval Date: Discharge Date: Discharge Summary D/C Summary: It has been my pleasure to treat SAIMA KERR under orders from NINI Hernandez, for the diagnosis of left CTS and right RF Trigger finger for a total of 24 visit(s). Please see the following information for a summary of their discharge status. Overall Improvement % Improvement: 75 Objective Objective/Function: Wrist: ROM left initial 54/40 current 60/55 Opposition: Kapandji opposition scale initial left 4 increased to 10/10 MP: left RF initial 0/60 current 0/75 PIP: left -20/70 current -5/100 DIP: left -15/30 current -2/65 Strength Sliver Lap Tender: initial left 5# increased to 45# Lateral Pinch: initial left 7# increased 16# Tripod Pinch: initial left pt was unable 13# Pt has gains with her ROM and strength. pt has met OT goals at this time. Pt cont with HEP. Goals Patient Goals: Regain Mobility, Decrease Pain, Use Hand/Wrist/Arm Normally Again, Be More Independent in ADLS and Resume Former Household Responsibilities (Cooking,Cleaning,Yard, etc.) Goal:100% adherence to protocol: Yes Goal Progress: Goal Met Goal:Daily scar massage when approriate: Yes Goal Progress: Goal Met Goal:ROM equal to unaffected hand: Yes Goal Progress: Goal Met Goal:Sliver Lap Tender/Pinch strength at least 75% of unaffected hand: Yes Goal Progress: Goal Met Goal:No pain with affected hand use: Yes Goal:Full use of affected hand in daily activities including work: Yes Goal Progress: Goal met. Goal:Decrease scar hypersensitivity: Yes Goal Progress: Progressing Other Goal: wt. bearing as tolerate. Plan Plan: Gym eq. to increase strength D/C Information Discharge Comments: pt was seen for 24 visits following a left RF trigger fingerrelease. Pt initially struggled with scar and edema. once improved pt made greatgains with use of her left non dominate hand for ADls and IADLs. Pt states she is IND. with ADLs, IADLs and home mtg. task. IND. with driving. pt has met goals. Pt reports she will continue with her HEP and return to use ofleft Non dominate hand as tolerated. pt agrees to D/C. d/c sentence: If there are questions or concerns regarding this patient's occupational therapy, please fell free to call me at [phone]. Thank you for the referral of this patient. Sincerely, DOE Harvey CHT <Electronically signed by Yumiko AZAR CHT> 12/15/23 1133 CC: NINI Muir; No Primary Care Physician ~ MK Signed [facility] Work Phone: [phone] 339-623402-08-2024 Instructions* Patient Instructions* Kyler Cramer APRN.DIRECTOR FACILITIES MAINTENANCE - 10/13/2023 7:39 AM EST How to Manage Common Symptoms Associated with COVID for Adults Fever- Fever is a temperature over 100.4 F and can occur when the body is fighting an infection. Tohelp treat a fever: Drink plenty of fluids and stay well hydrated. Eat small amounts of easy to digest food. Rest. Your body needs rest to recover, but getting up and moving around the house frequently is a good idea. You should try to continue doing your normal daily activities (bathing, toileting, grooming, cooking), though you will probably feel tired, and need to rest often. Avoid any heavy activity or exercise, as this will increase your body temperature. Dress in light clothing and stay covered in a light sheet. Keep the room temperature cool. Take a slightly warm (not cold or cool) bath, or apply damp washcloths to the forehead and wrists. Cough- Cough is a common symptom associated with COVID and can be bothersome. To help treat a cough: Stay well hydrated. Try warm water or tea with lemon and/or honey to help soothe the cough. Use a humidifier to add moisture to the air. Try a product with menthol, like a cough drop or a rub for your chest such as Vicks, which can helpreduce cough. Try cough drops. Avoid smoking and other strong odors or perfumes. Try breathing exercises to keep your lungs open and clear. Take a big deep breath through your noseand hold for 5 seconds before slowly releasing. Repeat frequently, while you are awake. Congestion- Runny nose or nasal congestion can occur with COVID. Treatment can help relieve symptoms: Try OTC nasal saline spray, or nasal saline rinse to relieve mucus congestion. Nasal strips can help keep nasal passages open, to increase airflow. Elevating your head with an extra pillow in bed can help reduce congestion. Using a humidifier can increase moisture in the air, and make breathing easier. Sore Throat- Another common symptom with COVID, can be managed at home by: Stay well hydrated. Gargle with salt water - mix teaspoon salt with 1 cup of warm water and gargle. This helps to loosen mucus in the back of the throat and may reduce discomfort. Try ice chips, popsicles or lozenges to soothe the throat. Nausea/Vomiting/Diarrhea- These are common symptoms, and staying hydrated is most important. If you are nauseous or vomiting, start with small sips of water every 10-15 minutes and increase astolerated. You can try sucking an ice cube too. If tolerating, you can try pedialyte or Gatorade, or flat sprite or cheikh-kate. Start slowly and increase as you are able to. Instead of meals, try smaller, more frequent snacks. Try eating bland foods like crackers, toast, rice, and applesauce. Avoid spicy, greasy or fried foods and dairy containing foods. Even if you aren't feeling hungry due to lack of smell or taste, it is important to try to take in some food when you are able. After drinking and eating, rest in an upright position for up to two hours as needed to help decrease nauseous feelings. Try closing your eyes, avoid moving and watching TV. Avoid strong odors that can make you feel more nauseated. When to seek emergency medical attention Look for emergency warning signs for COVID-19. If having any of these symptoms, seek emergency medical care immediately: Trouble breathing Persistent pain or pressure in the chest New confusion Inability to wake or stay awake Bluish lips or face *This list is not all possible symptoms. Please call your medical provider for any other symptoms that are severe or concerning to you. [facility] History of Present illness Narrative* Kyler Cramer APRN.CNP - 10/13/2023 7:32 AM EST Subjective HPI Nontoxic-appearing female presents to urgent care with chief complaint of fever and cough. Durationof symptoms 4 days. Associated symptoms with today's chief complaint are on and off headache, muscle aches, fatigue, nonproductive cough, and fever. Patient stated symptoms started abruptly. Patient states they have used [id number] medication with some success. No known sick contacts. Husbandstates many colleagues at his place of employment recently tested positive for the flu and COVID-19. Patient denies any pain at this time. Patient denies any visual changes, visual disturbance, shortness of breath, rash, exercise intolerance, pleuritic pain, productive cough, abdominal pain, nausea, vomiting, chest pain, or change in bowel or bladder habits. Past medical history prescription medication use allergies reviewed. .Patient presents with: Cough: SHEEHAN, congestion. Right ear pain, sore throat x 4 days History reviewed. No pertinent past medical history. History reviewed. No pertinent surgical history. ALLERGIES Diphenhydramine, Meperidine, and Tetracycline MEDICATIONS No prescriptions on file. History reviewed. No pertinent family history. Social History Tobacco Use Smoking status: Former Types: Cigarettes Passive exposure: Past Smokeless tobacco: Never BP 110/72 Pulse 90 Temp 37.3 C (99.1 F) Resp 21 Wt 85.9 kg (189 lb 6.4 oz) SpO2 98% Review of Systems Constitutional: Positive for chills and fever. Negative for malaise/fatigue. HENT: Positive for congestion, ear pain and sore throat. Negative for ear discharge and sinus pain. Eyes: Negative for blurred vision, pain, discharge and redness. Respiratory: Positive for cough. Negative for hemoptysis, sputum production, shortness of breath, wheezing and stridor. Cardiovascular: Negative for chest pain. Gastrointestinal: Negative for abdominal pain, diarrhea, nausea and vomiting. Musculoskeletal: Positive for myalgias. Skin: Negative for itching and rash. Neurological: Positive for headaches. Negative for dizziness. Objective Physical Exam Constitutional: General: She is not in acute distress. Appearance: She is not diaphoretic. HENT: Head: Normocephalic. Jaw: No trismus, tenderness, swelling or pain on movement. Right Ear: Tympanic membrane, ear canal and external ear normal. Left Ear: Tympanic membrane, ear canal and external ear normal. Nose: Congestion present. Mouth/Throat: Mouth: Mucous membranes are moist. Pharynx: Oropharynx is clear. Uvula midline. No pharyngeal swelling, oropharyngeal exudate, posterior oropharyngeal erythema or uvula swelling. Eyes: Conjunctiva/sclera: Conjunctivae normal. Pupils: Pupils are equal, round, and reactive to light. Cardiovascular: Rate and Rhythm: Normal rate and regular rhythm. Heart sounds: Normal heart sounds. Pulmonary: Effort: Pulmonary effort is normal. No tachypnea, accessory muscle usage or respiratory distress. Breath sounds: Normal breath sounds. No stridor. No wheezing, rhonchi or rales. Abdominal: General: There is no distension. Palpations: Abdomen is soft. Tenderness: There is no abdominal tenderness. There is no guarding or rebound. Musculoskeletal: Cervical back: Normal range of motion and neck supple. No edema, erythema, rigidity or tenderness. No pain with movement. Normal range of motion. Lymphadenopathy: Cervical: No cervical adenopathy. Skin: General: Skin is warm and dry. Neurological: Mental Status: She is alert and oriented to person, place, and time. ASSESSMENT/PLAN: 1. Viral illness - ICD9: 079.99, ICD10: B34.9 - COVID & INFLUENZA A/B NAAT, ROUTINE Patient nontoxic-appearing. Afebrile on today's assessment. No evidence of bacterial infection. Suspicious of viral etiology. If COVID and influenza test negative fever persist follow-up with PCP. Patient was educated on supportive therapies. Patient will follow up with primary care provider as needed. Patient was instructed to immediately proceed to emergency room for any new, worsening, or symptoms lasting longer than anticipated. The patient's clinical presentation is otherwise unremarkable at this time. Based on exam and clinical finding, the patient is stable for discharge. Plan of care was discussed with patient. Patient verbalizes understanding and agrees to plan of care. This note was generated using [employer] software. It may contain errors in wording, punctuation, or spelling. Kyler Cramer APRN.DIRECTOR FACILITIES MAINTENANCE [facility] NotePap Smear Specimen AdequacyDecember 2021 11:33amComment.Satisfactory for evaluation. Endocervical and/or squamous metaplasticcells (endocervical component)are present.[facility] INTERFACED A#[id number]. [facility] Work Phone: Comment on above:Satisfactory for evaluation. Endocervical and/or squamous metaplasticcells (endocervical component)are present.Discharge summary Author Cheyanne [facility] December 12, 2023 1:23pm Note Date/Time December 12, 2023 12:0 5pm [facility] Medical Records Department [address] [place] [address] Emergency Department Summary 12/12/23 MR#: [id number] Acct: [id number] Name: SAIMA KERR Rep #:[id number] : 1970 53 From: Cheyanne Cohen PCP: Care Physician,No Primary Status :REG ER Location: ED HPI History of Present Illness Chief Complaint: Other, Pain/Inj Informant: patient Narrative Narrative: Patient is a 53-year-old female with history of left carpal tunnel/trigger finger surgery (currently going to physical therapy for this) presenting with 1 day of left arm pain. She notes some left arm pain yesterday going from her shoulder down to her forearm. She has tried massage and out states it feels like there is a burning sensation in her shoulder and a tightness in her forearm(points to her proximal forearm). She states she had when she went to bed last night and woke up with that still. States otherwise she slept fine. She did not take anything for the pain prior to arrival. She went to physical therapy this morning (is doing weight training as part of her physical therapy) and the therapist recommended she come to the ER to be evaluated further. Patient denies any associated shortness of breath. She had some very mild shortness of breath. Did have a transient episode of lightheadedness and nausea that resolved earlier today. Did have a normal bowel movement and then 2 episodes ofdiarrhea today. She not sure if this is related to her symptoms. Denies any swelling of her legs. 2 of her older brothers did have heart attacks however her parents did not. Patient denies any history of high blood pressure, high cholesterol or diabetes. She denies any known heart issues. No other complaints or concerns verbalized at this time. 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 Home Medications ibuprofen 800 mg tablet 800 mg PO TID #30 tabs 12/18/20 [Rx Last Taken Unknown] ondansetron 4 mg disintegrating tablet 4 mg PO Q8H PRN PRN Nausea #10 tabs 02/06/21 [Rx Last Taken Unknown] Allergy/AdvReac Type Severity Reaction Status Date / Time diphenhydramine Allergy Severe Anaphylaxis Verified 12/12/23 11:29 [From Benadryl] meperidine [From Demerol] Allergy Severe Itching Verified 12/12/23 11:29 tetracycline AdvReac Severe UTI Verified 12/12/23 11:29 Family History Mother Cancer cervical Other Arthritis Asthma Diabetes Heart disease Hypertension Myocardial infarction Surgical History History of cholecystectomy history of HALO Social History Smoking Status: Former smoker quit date: 09/05/03 Tobacco: How many years used: 10 alcohol intake: never substance use type: does not use what type of physical activity do you participate in: aerobics ROS ROS ED Constitutional Constitutional ED: Denies chills or fever(s) Cardiovascular Cardiovascular: Denies chest pain Respiratory/Chest Respiratory/Chest: Reports dyspnea; Denies cough Gastrointestinal Gastrointestinal: Reports diarrhea and nausea; Denies abdominal pain or vomiting Musculoskeletal Musculoskeletal: Reports other Details: Left arm discomfort ; Denies arthralgias, back pain or neck pain Integumentary Denies rash Neurologic Neurologic: Denies paresthesias or weakness Psychiatric Psychiatric: Denies anxiety Hematologic/Lymphatic Hematologic/Lymphatic: Denies easy bleeding or easy bruising EXAM Physical Exam Const Vital Signs: 12/12/23 11:29 12/12/23 11:35 12/12/23 12:22 Temperature 96.8 F L Temperature Source Temporal Pulse Rate 97 Respiratory Rate 16 Respiratory Effort Normal Non-Labored Respiratory Pattern Normal Blood Pressure 158/89 H Blood Pressure Mean 112 Pulse Ox 98 Oxygen Delivery Method Room Air Room Air Positive well nourished and well developed General Appearance ED: well developed and NAD HEENT Reports moist mucous membranes Eyes PERRL Neck supple and no JVD Chest Wall inspection of chest normal and palpation of chest normal Resp normal respiratory effort and clear to auscultation bilaterally Cardio regular rate and regular rhythm GI normal to inspection, nondistended, normoactive bowel sounds and non-tender Extremity normal to inspection Extremity Narrative: Very mild improvement of pain with palpation over the dorsal proximal radius on the left. Normal range of motion of the shoulder. Normal movements of the hand. No specific reproducibility of her discomfort. General Extremety ED: Negative for edema General Extremity: Negative for edema Neuro oriented x3 and no sensory deficits noted Sensorium / Orientation: alert Motor Exam: strength 5/5 throughout; Negative for general weakness Psych mental status grossly normal Skin no rashes or lesions noted and no wounds MDM MDM MDM Narrative Medical decision making narrative: Patient is evaluated for left arm pain. I suspect is more muscle skeletal as itseems to correlate with physical therapy she is doing some weight training however given her age will rule out cardiac process. Symptoms been present since yesterday so I feel like a single troponin is sufficient. EKG is not consistent with ACS. Cardiac workup is normal. Patient declining respiratory symptoms I do not thinkshe needs further workup for pulmonary emboli. 2 view chest x-ray viewed by myself as well as radiology does not show any acute process.patient has improvement of pain with Tylenol. High since he troponin is less than 3 and I do not think this is any type of referred cardiac pain. At this time I feel that patient be comfortably discharged home. Suspect her pain is muscle skeletal. Possibly related to her physical therapy. Patient agreeable with plan of care. Patient blood sugar is elevated however she has a normal anion gap. Patient's department for blood glucose and can follow-up outpatient with her PCP for this. Lab Data Attestation: I reviewed the patient's lab results. Labs: Laboratory Results - last 24 hr 12/12/23 12:12 WBC 7.0 RBC 4.89 Hgb 14.0 Hct 41.9 MCV 85.7 MCH 28.6 MCHC 33.4 RDW Std Deviation 38.2 RDW Coeff of Gaetano 12.2 Plt Count 250 MPV 9.9 Immature Gran % (Auto) 0.600 Neut % (Auto) 57.6 Lymph % (Auto) 33.2 Webb % (Auto) 6.9 Eos % (Auto) 1.4 Baso % (Auto) 0.3 Absolute Neuts (auto) 4.0 Absolute Lymphs (auto) 2.32 Nucleated RBC % 0 Sodium 137 Potassium 4.1 Chloride 104 Carbon Dioxide 27.0 Anion Gap 6 BUN 8 Creatinine 0.70 Estim Creat Clear Calc 88.81 Est GFR (MDRD) Af Amer 112 Est GFR (MDRD) Non-Af 93 BUN/Creatinine Ratio 11.5 Glucose 248 H Calcium 9.1 Troponin I High Sens < 3 L Radiography Diagnostic Testing: Clinical Impression(s) from Imaging Studies Chest X-Ray 12/12/23 12:21 IMPRESSION: Normal x-ray examination of the chest. Electronically Signed: Diego Busch MD at 12:40 EDT , Rhythm Strip Rhythm Strip: Sinus Rhythm Rate: 93 Ectopy: None EKG Initial EKG: Attestation: I personally reviewed and interpreted this EKG as follows: Interpretation: Sinus Rhythm Comments: Normal sinus rhythm at a rate of 93 bpm Left axis deviation Minimal voltage criteria for LVH Normal ST segments No change. Prior EKG on 02/24/2022 Discharge Plan Triage Chief Complaint: Other, Pain/Inj ED Provider: Cheyanne Lara Dx/Rx/DC Orders Clinical Impression: Blood glucose elevated, Arm pain, left Instructions: High Blood Sugar (Hyperglycemia), ED Muscle Strain, Extremity Prescriptions: No Action ibuprofen 800 MG tablet 800 mg PO TID Qty: 30 1RF ondansetron [ondansetron] 4 MG tablet 4 mg PO Q8H PRN PRN (Reason: Nausea) Qty: 10 0RF Primary Care Provider: Care Physician,No Primary Referrals: Anjum Jaquez MD [Med Staff - Active Staff] - As soon as possible Care Physician,No Primary [Primary Care Provider] - Activity Restrictions/Additional Instructions: Your heart workup was normal. Your blood sugar was elevated today. I do recommend following up with primary care doctor for further evaluation of this to make sure that you are not developing diabetes. To continue take Tylenol as needed for your pain. If you do not have a primary care doctor with given referral for one on your discharge she reports Disposition Disposition: Home, Self Care What to do if you have Problems For any increased pain, shortness of breath, bleeding, nausea or vomiting, chestpain, or any unexpected problems, contact your Primary Care Provider. Call [facility] ([phone]) or report to the closest Emergency Room. Call 911 if necessary. 12/12/23 1323 <Electronically signed by Cheyanne Lara DO> Cosigner Signature (if applicable): CC: No Primary Care Physician ~ Signed [facility] Work Phone: Evaluation noteNo assessment information available [facility] Work Phone: Evaluation note* Diagnosis Viral illness- Primary Unspecified viral infection, in conditions classified elsewhere and of unspecified site [facility] Diagnosis Sinobronchitis- Primary Unspecified sinusitis (chronic) [facility]* Diagnosis Vaginal itching- Primary Pruritus of genital organs Vaginal burning Other specified symptom associated with female genital organs [facility]* Diagnosis Rib pain on right side- Primary Chest pain, unspecified Muscle strain of chest wall, initial encounter Rib pain on right side Chest pain, unspecified [facility] Diagnosis Rib pain on right side Chest pain, unspecified [facility] Additional Instructions Your heart workup was normal. Your blood sugar was elevated today. I do recommend following up with primary care doctor for further evaluation of this to make sure that you are not developing diabetes. To continue take Tylenol as needed for your pain. If you do not have a primary care doctor with given referral for one on your discharge [facility]WH[facility] Work Phone: Reason for visit Narrative* Diagnostic Procedure Only (Urgent) - Closed Specialty Diagnoses / Procedures Referred By Rosi t Referred To Contact XR IMAGING Diagnoses Rib pain on right side Procedures XR RIBS/CHEST 3V AP RIB/OBLS/CXR RIGHT RADEX RIBS UNI W/POSTEROANT CH MINIMUM 3 VIEWS Prince Serra, TAMIKO.DIRECTOR FACILITIES MAINTENANCE [address] [place] [address] Phone: tel: fax: [place] [phone] Referral ID Status Reason Start Date Expiration Date V isits Requested Visits Authorized [id number] Closed Auto-Generate d Referral 11/09/2024 12/09/2025 1 1 [facility] Chief Complaint and Reason for Visit Chief Complaint SOB Chief Complaint Encounter for other preprocedural examination Chief Complaint Encounter for other preprocedural examination CTS,R TRIGGER THUMB/R TRIGGER MIDL FINGER.RX HERE Chief Complaint L CARPAL TUNNEL RX H ERE ARM PAIN Chief Complaint ARM PAIN L CARPAL TUNNEL RX HERE Family History No Family History Records Found Relationship Condition Age at Onset Recorded Date/T meghana Not Specified Diabetes mellitus Unknown Arthritis Unknown Cardiac disease Unknown Myocardial infarction Unknown Hypertension Unknown Asthma Unknown mother Malignant neoplasm Unknown Advance Directives No Advanced Directives Records Found Advance Directive Response Recorded Date/ Time Living Will No February 24, 2022 1:06pm Power of Barrel Inspector Tight No February 24 2 1:06pm Advance Directive Response Recorded Date/ Time Living Will No February 24, 2022 12:06pm Power of Barrel Inspector Tight No February 24 2 12:06pm Advance Directive Response Recorded Date/ Time Living Will No December 12, 2023 12:22pm Power of Barrel Inspector Tight No December 11 12:22pm Health Concerns Infection Onset Date Last Indicated Resolved Time COVID-19 Rule-Out 10/13/2023 10/13/2023 Summary Purpose Additional Source Comments Goals (unrecognized section and content) Goals may be documented in a n alternate sectionGoals may be documented in an alternate sectionGoals may be documented in an alternate sectionGoals may be documented in an alternate sectionGoals may be documented in an alternate section Source Comments (unrecognize d section and content) In the event this informatio n is protected by the Federal Confidentiality of Alcohol and Drug Abuse Patient Records regulations: The Federal rules restrict any use of the information to criminally investigate or prosecute any alcohol or drug abuse patient.[facility] the event this information is protected by the Federal Confidentiality of Alcohol and Drug Abuse Patient Records regulations: The Federal rules restrict any use of the information to criminally investigate or prosecute any alcohol or drug abuse patient.[facility] the event this information is protected by the Federal Confidentiality of Alcohol and Drug Abuse Patient Records regulations: The Federal rules restrict any use of the information to criminally investigate or prosecute any alcohol or drug abuse patient.[facility] the event this information is protected by the Federal Confidentiality of Alcohol and Drug Abuse Patient Records regulations: The Federal rules restrict any use of the information to criminally investigate or prosecute any alcohol or drug abuse patient.[facility]In the event this information is protected by the Federal Confidentiality of Alcohol and Drug Abuse Patient Records regulations: The Federal rules restrict any use of the information to criminally investigate or prosecute any alcohol or drug abuse patient.[facility] the event this information is protected by the Federal Confidentiality of Alcohol and Drug Abuse Patient Records regulations: The Federal rules restrict any use of the information to criminally investigate or prosecute any alcohol or drug abuse patient.[facility] Reason for Visit (unrecogniz ed section and content) Reason Comments Cough SHEEHAN, congestion. Righ t ear pain, sore throat x 4 days Reason Comments Cough Cough, fever, ST, sheehan and bodyaches x 4 days Reason Comments Vaginal Problem Itching and swelling in her vagina, redness, irritation, x 4 days Reason Comments Results BV+, Jenna+ Reason Comments Pain R rib pain x2 days, sneezed and felt pain Care Teams (unrecognized sec tion and content) Team Status: Active Member Role Status Dates No Primary Care Physician Primary Care Provider Active Team Status: Inactive Member Role Status Dates No Primary Care Physician Primary Care Provider Active Francis MORIN PA-C Attending Provider, Referring Pr ovider Active Team Status: Inactive Member Role Status Dates No Primary Care Physician Primary Care Provider Active Dr. Cheyanne Lara , DO Emergency Provider Active Team Status: Active Member Role Status Dates No Primary Care Physician Primary Care Provider Active Francis MORIN PA-C Attending Provider, Referring Pr ovider Active INFORMATION SOURCE (unrecogn ized section and content) DATE CREATED AUTHOR 03/09/2025 [facility] DATE CREATED AUTHOR AUTHOR'S ORGANIZ ATION 04/14/2025 [facility] FOR RECORDS PERTAINING TO PATIENTS WHO ARE OR HAVE BEEN ENROLLED IN A CHEMICAL DEPENDENCY/SUBSTANCEABUSE PROGRAM, SOME INFORMATION MAY BE OMITTED. This clinical summary was aggregated from multiple sources. Caution should be exercised in using it in the provision of clinical care. This summary normalizes information from multiple sources, and as a consequence, information in this document may materially change the coding, format and clinical context of patient data. In addition, data may be omitted in some cases. CLINICAL DECISIONS SHOULD BE BASED ON THE PRIMARY CLINICAL RECORDS. [email or web address] provides no warranty or guarantee of the accuracy or completeness of information in this document.
[2025-04-19 20:56] VITALS: BP 138/82; PULSE 78; RESP 16; TEMP 36.8; O2SAT 98
--- NOTE | 2025-04-19 20:57 | ED.RN ---
approx 500-600 ml NS given
== END 2025-04-19 21:00 | disposition home or self-care (01) ==
PROVIDERS: Emergency Provider Emergency Medicine; Visit Provider Emergency Medicine
DX: R51.9 Headache, unspecified (principal); Z87.891 Personal history of nicotine dependence; Z90.49 Acquired absence of other specified parts of digestive tract
CPT/HCPCS: 70450; 96374; 96375; 99282; A4216